=== PATIENT | female | born 1980 | race Two or more races ===

== ENCOUNTER 2017-08-21 19:44 | Emergency (ER) | payer OTHER ==
[2017-08-21 20:54] LABS: HEMATOCRIT 38.4 % (36.0-47.0); HEMOGLOBIN 12.9 g/dl (12.0-15.5); MEAN CORPUSCULAR HEMOGLOBIN 31.4 pg (27.0-33.0); MEAN CORPUSCULAR HGB CONC 33.6 g/dl (32.0-36.5); MEAN CORPUSCULAR VOLUME 93.4 fl (80.0-96.0); PLATELET COUNT, AUTOMATED 196 10^3/uL (150-450); RED BLOOD COUNT 4.11 10^6/uL (4.00-5.40); RED CELL DISTRIBUTION WIDTH 12.4 % (11.5-14.5); WHITE BLOOD COUNT 5.6 10^3/uL (4.0-10.0)
[2017-08-21 21:02] LABS: CONTROL LINE HCG INT CTR LINE PRESENT; HCG, SERUM QUALITATIVE NEGATIVE (NEGATIVE)
[2017-08-21 21:07] LABS: AMPHETAMINES LEVEL URINE POSITIVE (NEGATIVE); BARBITURATES URINE POSITIVE (NEGATIVE); BENZODIAZEPINES URINE NEGATIVE (NEGATIVE); CANNABINOIDS URINE NEGATIVE (NEGATIVE); COCAINE METABOLITE URINE NEGATIVE (NEGATIVE); METHADONE URINE NEGATIVE (NEGATIVE); OPIATES URINE NEGATIVE (NEGATIVE); PHENCYCLIDINE URINE NEGATIVE (NEGATIVE)
[2017-08-21 21:18] LABS: ACETAMINOPHEN LEVEL < 2.0 UG/ML (10.0-30.0); ALBUMIN 3.7 GM/DL (3.2-5.2); ALBUMIN/GLOBULIN RATIO 1.06 (1.00-1.93); ALKALINE PHOSPHATASE 100 U/L (45-117); ALT/SGPT 13 U/L (12-78); ANION GAP 7 MEQ/L (8-16); AST/SGOT 14 U/L (7-37); BILIRUBIN,DIRECT 0.1 MG/DL (0.0-0.2); BILIRUBIN,TOTAL 0.3 MG/DL (0.2-1.0); BLOOD UREA NITROGEN 13 MG/DL (7-18); CALCIUM LEVEL 8.5 MG/DL (8.5-10.1); CARBON DIOXIDE LEVEL 28 MEQ/L (21-32); CHLORIDE LEVEL 109 MEQ/L (98-107); CREATININE FOR GFR 0.75 MG/DL (0.55-1.30); GLOMERULAR FILTRATION RATE > 60.0 (>60); GLUCOSE, FASTING 83 MG/DL (70-100); POTASSIUM SERUM 3.6 MEQ/L (3.5-5.1); SALICYLATE LEVEL < 1.7 MG/DL (5.0-30.0); SODIUM LEVEL 144 MEQ/L (136-145); TOTAL PROTEIN 7.2 GM/DL (6.4-8.2)
[2017-08-21 21:21] LABS: ETHYL ALCOHOL (ETHANOL) < 0.003 % (0.000-0.010)
== END 2017-08-21 22:10 | disposition home or self-care (01) ==
LOC: M ED 19:44
DX: F33.9 Major depressive disorder, recurrent, unspecified (principal); F41.9 Anxiety disorder, unspecified; M54.30 Sciatica, unspecified side; G43.909 Migraine, unspecified, not intractable, without status migrainosus; Z79.899 Other long term (current) drug therapy; Z88.1 Allergy status to other antibiotic agents; Z87.891 Personal history of nicotine dependence
CPT/HCPCS: 80320

== ENCOUNTER 2018-01-27 11:40 | Emergency (ER) | payer OTHER ==
[2018-01-27] MEDS: dexameTHASONE 4 MG/ML 1ML VIAL (J1100) IM (11:58)
[2018-01-27] MEDS: KETOROLAC 60 MG/2 ML VIAL (J1885) IM (11:59)
== END 2018-01-27 12:14 | disposition home or self-care (01) ==
LOC: M ED 11:40
DX: M54.32 Sciatica, left side (principal); F41.9 Anxiety disorder, unspecified; F31.9 Bipolar disorder, unspecified; F90.9 Attention-deficit hyperactivity disorder, unspecified type; Z88.1 Allergy status to other antibiotic agents; Z79.899 Other long term (current) drug therapy
CPT/HCPCS: J1100

== ENCOUNTER 2018-02-05 09:21 | Outpatient (RCR) | payer OTHER | END 2018-02-20 | LOC: M PT 09:21 | DX: Z51.89 Encounter for other specified aftercare (principal); M54.42 Lumbago with sciatica, left side | CPT/HCPCS: 97110 ==

== ENCOUNTER → 2018-02-06 | Outpatient (CLI) | payer OTHER | LOC: M RAD 08:10 | DX: M54.42 Lumbago with sciatica, left side (principal) | CPT/HCPCS: 72110 ==

== ENCOUNTER 2018-02-22 10:34 | Outpatient (RCR) | payer OTHER | END 2018-03-22 | LOC: M PT 10:34 | DX: M54.42 Lumbago with sciatica, left side (principal) | CPT/HCPCS: 97110 ==

== ENCOUNTER → 2018-03-16 | Outpatient (CLI) | payer OTHER | LOC: M RAD 11:34 | DX: M47.896 Other spondylosis, lumbar region (principal); M51.26 Other intervertebral disc displacement, lumbar region | CPT/HCPCS: 72148 ==

== ENCOUNTER → 2018-03-19 | Outpatient (CLI) | payer OTHER | LOC: M PAIN 15:15 | DX: Z53.29 Procedure and treatment not carried out because of patient's decision for other reasons (principal) ==

== ENCOUNTER → 2018-03-27 | Outpatient (REF) | payer OTHER | LOC: M SFHCPLAZ 11:46 | DX: R10.32 Left lower quadrant pain (principal); R35.0 Frequency of micturition | CPT/HCPCS: 87086 ==

== ENCOUNTER → 2018-04-01 | Outpatient (CLI) | payer OTHER | LOC: M RAD 09:43 | DX: R10.32 Left lower quadrant pain (principal) | CPT/HCPCS: 76775 ==

== ENCOUNTER 2018-04-05 17:25 | Emergency (ER) | payer OTHER ==
[2018-04-05] MEDS: GI COCKTAIL 50ML BTL(HYOSCYAMINE/MAALOX/LIDOCAINE VISCOUS)(1:3:1) PO (19:10)
[2018-04-05] MEDS: NS 1,000 ML IV (19:10)
[2018-04-05] MEDS: ONDANSETRON 4MG/2ML VIAL (J2405) IV (19:11)
[2018-04-05 19:12] LABS: BASO % 0.4 % (0.0-1.0); EOS # 0.1 10^3/uL (0.0-0.50); EOS % 2.2 % (0.0-3.0); HEMATOCRIT 41.8 % (36.0-47.0); HEMOGLOBIN 14.1 g/dl (12.0-15.5); IMMATURE GRANULOCYTE % 0.2 % (0-3.0); LYMPH # 1.4 10^3/uL (1.5-4.5); LYMPH % 28.3 % (24.0-44.0); MEAN CORPUSCULAR HEMOGLOBIN 31.3 pg (27.0-33.0); MEAN CORPUSCULAR HGB CONC 33.7 g/dl (32.0-36.5); MEAN CORPUSCULAR VOLUME 92.9 fl (80.0-96.0); MONO # 0.4 10^3/uL (0.0-0.8); MONO % 8.5 % (0.0-5.0); NEUTROPHILS % 60.4 % (36.0-66.0); PLATELET COUNT, AUTOMATED 183 10^3/uL (150-450); RED CELL DISTRIBUTION WIDTH 12.3 % (11.5-14.5)
[2018-04-05] MEDS: KETOROLAC 30 MG/ML VIAL (J1885) IV (19:14)
[2018-04-05 19:32] LABS: CONTROL LINE HCG INT CTR LINE PRESENT; HCG, SERUM QUALITATIVE NEGATIVE (NEGATIVE)
[2018-04-05 19:40] LABS: ALBUMIN 3.3 GM/DL (3.2-5.2); ALBUMIN/GLOBULIN RATIO 1.03 (1.00-1.93); ALKALINE PHOSPHATASE 88 U/L (45-117); ALT/SGPT 18 U/L (12-78); ANION GAP 6 MEQ/L (8-16); AST/SGOT 10 U/L (7-37); BILIRUBIN,DIRECT 0.1 MG/DL (0.0-0.2); BILIRUBIN,TOTAL 0.4 MG/DL (0.2-1.0); BLOOD UREA NITROGEN 11 MG/DL (7-18); CALCIUM LEVEL 8.1 MG/DL (8.5-10.1); CARBON DIOXIDE LEVEL 28 MEQ/L (21-32); CHLORIDE LEVEL 107 MEQ/L (98-107); CREATININE FOR GFR 0.72 MG/DL (0.55-1.30); GLOMERULAR FILTRATION RATE > 60.0 (>60); GLUCOSE, FASTING 100 MG/DL (70-100); LIPASE 130 U/L (73-393); POTASSIUM SERUM 3.7 MEQ/L (3.5-5.1); SODIUM LEVEL 141 MEQ/L (136-145); TOTAL PROTEIN 6.5 GM/DL (6.4-8.2)
[2018-04-05] MEDS ORDERED: ISOVUE-370 76% 100ML VIAL (Q9967) As Ordered (19:49)
[2018-04-05] MEDS ORDERED: HALOPERIDOL 5 MG/ML VIAL (J1630) IV (21:12)
[2018-04-05 21:31] LABS: KETONE, URINE AUTO RFX NEGATIVE (NEGATIVE); LEUKOCYTE ESTERASE UR AUTO RFX NEGATIVE (NEGATIVE); NITRITE, URINE AUTO RFX NEGATIVE (NEGATIVE); RBC, URINE AUTO RFX 2 /HPF (0-3); SQUAM EPITHELIAL CELL UR AURFX 7 /HPF (0-6); WBC, URINE AUTO RFX 1 /HPF (0-3)
[2018-04-05] MEDS: diphenhydrAMINE INJ 50MG/ML VIAL (J1200) IV (21:32)
[2018-04-05] MEDS: HALOPERIDOL 5 MG/ML VIAL (J1630) IM (21:32)
[2018-04-05 22:10] LABS: SPECIFIC GRAVITY UR AUTO RFX >1.060 (1.002-1.035)
== END 2018-04-05 22:31 | disposition home or self-care (01) ==
LOC: M ED 17:25
DX: R10.9 Unspecified abdominal pain (principal); R11.2 Nausea with vomiting, unspecified; R19.7 Diarrhea, unspecified; N83.202 Unspecified ovarian cyst, left side; M54.30 Sciatica, unspecified side; Z79.899 Other long term (current) drug therapy; Z88.1 Allergy status to other antibiotic agents; Z87.891 Personal history of nicotine dependence
CPT/HCPCS: J1200

== ENCOUNTER 2018-04-11 13:30 | Outpatient (RCR) | payer OTHER ==
[~2018-04-11 13:30] MED LIST: ADDE12.5 PO; KLON1TAB PO; LAMO100T PO; LEXA1TAB2 PO; MEDR4PAK PO; ZOFR4TAB14 PO
== END 2018-04-22 ==
LOC: M PT 13:30
PROVIDERS: ATTEND Physician Assistant
DX: Z47.89 Encounter for other orthopedic aftercare (principal); M54.42 Lumbago with sciatica, left side; M47.896 Other spondylosis, lumbar region; M51.36 Other intervertebral disc degeneration, lumbar region

== ENCOUNTER → 2018-04-12 | Outpatient (REF) | payer OTHER ==
[2018-04-12 17:43] LABS: CHLAMYDIA DNA AMPLIFICATION NEGATIVE (NEGATIVE); GC DNA AMPLIFICATION NEGATIVE (NEGATIVE)
== END ==
LOC: M SFHCPLAZ 15:25
PROVIDERS: ATTEND Physician Assistant
DX: Z11.3 Encounter for screening for infections with a predominantly sexual mode of transmission (principal)

== ENCOUNTER 2018-05-21 13:18 | Outpatient (RCR) | payer OTHER | END 2018-05-23 | LOC: M PT 13:18 | PROVIDERS: ATTEND Physician Assistant | DX: M54.42 Lumbago with sciatica, left side (principal); M47.896 Other spondylosis, lumbar region; M51.36 Other intervertebral disc degeneration, lumbar region ==

== ENCOUNTER 2018-06-14 06:58 | Day surgery (SDC) | payer OTHER ==
[~2018-06-14] VITALS: Ht 157.5 cm; Wt 55.8 kg
[~2018-06-14 06:58] MED LIST changes: +ADDE1TAB14 PO; +NS 1,000 ML IV ONE
[2018-06-14] MEDS ORDERED: LIDOCAINE 2% INJ 100 MG/5 ML SDV (FOR ANES.) As Ordered ONE (07:23)
[2018-06-14] MEDS ORDERED: PROPOFOL 200 MG/20 ML VIAL As Ordered ONE (07:23)
--- NOTE | 2018-06-14 08:13 | ROOR ---
Patient Name: Omega Lara Procedure Date: 06/14/2018 7:29 AM Date of : 1980 Age: 37 Room: [facility] Gender: Female Note Status: Finalized Procedure: Colonoscopy Indications: Chronic diarrhea Providers: Luc Brown MD Referring MD: CLEOPATRA BROWN Requesting Provider: Medicines: Monitored Anesthesia Care Complications: No immediate complications. Procedure: Pre-Anesthesia Assessment: - Prior to the procedure, a History and Physical was performed, and patient medications and allergies were reviewed. The patient is competent. The risks and benefits of the procedure and the sedation options and risks were discussed with the patient. All questions were answered and informed consent was obtained. Patient identification and proposed procedure were verified by the physician, the nurse and the anesthesiologist in the procedure room. Mental Status Examination: alert and oriented. Airway Examination: normal oropharyngeal airway and neck mobility. Respiratory Examination: clear to auscultation. CV Examination: normal. Prophylactic Antibiotics: The patient does not require prophylactic antibiotics. Prior Anticoagulants: The patient has taken no previous anticoagulant or antiplatelet agents. ASA Grade Assessment: II - A patient with mild systemic disease. After reviewing the risks and benefits, the patient was deemed in satisfactory condition to undergo the procedure. The anesthesia plan was to use monitored anesthesia care (MAC). Immediately prior to administration of medications, the patient was re-assessed for adequacy to receive sedatives. The heart rate, respiratory rate, oxygen saturations, blood pressure, adequacy of pulmonary ventilation, and response to care were monitored throughout the procedure. The physical status of the patient was re-assessed after the procedure. The Colonoscope was introduced through the anus and advanced to the terminal ileum, with identification of the appendiceal orifice and IC valve. The colonoscopy was performed without difficulty. The patient tolerated the procedure well. The quality of the bowel preparation was good. The terminal ileum, ileocecal valve, appendiceal orifice, and rectum were photographed. Scope insertion time was 4 minutes. Scope withdrawal time was 10 minutes. The total duration of the procedure was 14 minutes. Findings: The perianal and digital rectal examinations were normal. The terminal ileum appeared normal. A 15 mm polyp was found in the ascending colon. The polyp was flat and sessile. The polyp was removed with a hot snare. The polyp was removed with a piecemeal technique using a hot snare. Resection and retrieval were complete. Verification of patient identification for the specimen was done by the physician and nurse using the patient's name, date and medical record number. Estimated blood loss was minimal. To close a defect after polypectomy, one hemostatic clip was successfully placed. There was no bleeding at the end of the procedure. Non-bleeding external and internal hemorrhoids were found during retroflexion. The hemorrhoids were small. Normal mucosa was found in the entire colon. Biopsies for histology were taken with a cold forceps from the right colon, left colon, transverse colon and rectosigmoid colon for evaluation of microscopic colitis. Impression: - The examined portion of the ileum was normal. - One 15 mm polyp in the ascending colon, removed with a hot snare and removed piecemeal using a hot snare. Resected and retrieved. Clip was placed. - Non-bleeding external and internal hemorrhoids. - Normal mucosa in the entire examined colon. Biopsied. Recommendation: - Patient has a contact number available for emergencies. The signs and symptoms of potential delayed complications were discussed with the patient. Return to normal activities tomorrow. Written discharge instructions were provided to the patient. - Resume previous diet. - Continue present medications. - Await pathology results. - Repeat colonoscopy in 1 year for surveillance after piecemeal polypectomy. - Based on the biopsy results you will receive a phone call from GI clinic in 2-3 weeks to review the pathology results AND/OR your results will be faxed to your Primary care physician. - Return to primary care physician. Luc Brown MD Luc Brown MD 06/14/2018 8:12:34 AM This report has been signed electronically. Number of Addenda: 0 Note Initiated On: 06/14/2018 7:29 AM Estimated Blood Loss: Estimated blood loss was minimal.
[2018-06-14 08:33] VITALS: BP 107/66
== END 2018-06-14 08:35 | disposition home or self-care (01) ==
LOC: M OPP 06:58
PROVIDERS: ATTEND Internal Medicine Gastroenterology
DX: K64.8 Other hemorrhoids (principal); D12.2 Benign neoplasm of ascending colon; K52.9 Noninfective gastroenteritis and colitis, unspecified; Z79.899 Other long term (current) drug therapy; Z88.8 Allergy status to other drugs, medicaments and biological substances; F32.9 Major depressive disorder, single episode, unspecified; G43.909 Migraine, unspecified, not intractable, without status migrainosus; Z80.41 Family history of malignant neoplasm of ovary

== ENCOUNTER → 2018-07-02 | Outpatient (REF) | payer OTHER ==
[~2018-07-02] MED LIST changes: -NS 1,000 ML IV ONE
[2018-07-02 18:47] LABS: APPEARANCE, URINE HAZY (CLEAR); BACTERIA, URINE AUTO NEGATIVE (NEGATIVE); BILIRUBIN, URINE AUTO NEGATIVE (NEGATIVE); BLOOD, URINE BLOOD NEGATIVE (NEGATIVE); COLOR, URINE YELLOW (YELLOW); GLUCOSE, URINE (UA) AUTO NEGATIVE (NEGATIVE); KETONE, URINE AUTO NEGATIVE (NEGATIVE); LEUKOCYTE ESTERASE, URINE AUTO NEGATIVE (NEGATIVE); MUCUS, URINE SMALL (NEGATIVE); NITRITE, URINE AUTO NEGATIVE (NEGATIVE); PROTEIN, URINE AUTO NEGATIVE (NEGATIVE); RBC, URINE AUTO 0 /HPF (0-3); SPECIFIC GRAVITY URINE AUTO 1.014 (1.002-1.035); SQUAMOUS EPITHELIAL CELL UR AU 6 /HPF (0-6); UROBILINOGEN, URINE AUTO 0.2 mg/dL (0.0-2.0); WBC, URINE AUTO 1 /HPF (0-3)
== END ==
LOC: M SFHCPLAZ 17:30
PROVIDERS: ATTEND Nurse Practitioner Family
DX: R10.2 Pelvic and perineal pain (principal)

== ENCOUNTER → 2018-07-10 | Outpatient (CLI) | payer OTHER ==
--- NOTE | 2018-07-11 06:41 | REP ---
Clinical: Pelvic pain. Technique: Transabdominal pelvic ultrasound followed by transvaginal examination for better evaluation of the endometrium and adnexa. Findings: Evidence of partial hysterectomy. Residual cervical tissue demonstrates small parenchymal calcifications and subcentimeter Nabothian cysts. Evidence of prior right oophorectomy. Left ovary measures 4.2 x 2.4 x 2.8 cm and includes 2.1 cm dominant follicle along with 1.3 cm hemorrhagic cyst. Color evaluation demonstrates left ovarian vascularity excluding torsion. Bladder is unremarkable and measures 8.8 x 2.8 x 5.8 cm. Impression: 1. Residual cervical tissue demonstrates heterogeneous parenchyma with scattered small chronic calcifications and subcentimeter Nabothian cysts. 2. Left ovary demonstrates dominant follicle and hemorrhagic cyst without evidence for torsion. Electronically Signed by Jake Sommers MD 07/11/2018 06:33 A
== END ==
LOC: M RAD 08:26
PROVIDERS: ATTEND Nurse Practitioner Family
DX: R10.2 Pelvic and perineal pain (principal); N83.202 Unspecified ovarian cyst, left side; N88.8 Other specified noninflammatory disorders of cervix uteri

== ENCOUNTER → 2018-07-16 | Outpatient (REF) | payer OTHER | LOC: M SFHCPLAZ 11:39 | PROVIDERS: ATTEND Physician Assistant | DX: R10.9 Unspecified abdominal pain (principal) ==

== ENCOUNTER → 2018-07-16 | Outpatient (CLI) | payer OTHER ==
[2018-07-16 12:14] LABS: BASO % 0.5 % (0.0-1.0); EOS # 0.2 10^3/uL (0.0-0.50); EOS % 3.5 % (0.0-3.0); HEMATOCRIT 40.9 % (36.0-47.0); HEMOGLOBIN 13.5 g/dl (12.0-15.5); LYMPH # 1.8 10^3/uL (1.5-4.5); LYMPH % 29.3 % (24.0-44.0); MEAN CORPUSCULAR VOLUME 93.8 fl (80.0-96.0); MONO # 0.4 10^3/uL (0.0-0.8); MONO % 5.8 % (0.0-5.0); NEUTROPHILS # 3.6 10^3/uL (1.8-7.7); NEUTROPHILS % 60.6 % (36.0-66.0); PLATELET COUNT, AUTOMATED 179 10^3/uL (150-450); RED BLOOD COUNT 4.36 10^6/uL (4.00-5.40)
[2018-07-16 12:45] LABS: ALBUMIN 3.7 GM/DL (3.2-5.2); ALT/SGPT 14 U/L (12-78); BILIRUBIN,TOTAL 0.6 MG/DL (0.2-1.0); BLOOD UREA NITROGEN 9 MG/DL (7-18); CALCIUM LEVEL 8.7 MG/DL (8.5-10.1); CARBON DIOXIDE LEVEL 27 MEQ/L (21-32); CHLORIDE LEVEL 105 MEQ/L (98-107); CREATININE FOR GFR 0.76 MG/DL (0.55-1.30); FREE T4 1.05 NG/DL (0.76-1.46); GLOMERULAR FILTRATION RATE > 60.0 (>60); GLUCOSE, FASTING 83 MG/DL (70-100); LIPASE 102 U/L (73-393); POTASSIUM SERUM 4.2 MEQ/L (3.5-5.1); SODIUM LEVEL 138 MEQ/L (136-145); THYROID STIMULATING HORMONE 0.634 uIU/ML (0.358-3.740)
== END ==
LOC: M LAB 11:37
PROVIDERS: ATTEND Physician Assistant
DX: R10.9 Unspecified abdominal pain (principal)

== ENCOUNTER → 2018-08-08 | Outpatient (REF) | payer OTHER, MEDICAID ==
[2018-08-10 16:33] LABS: HPV HYBRID CAPTURE II Negative (Negative)
== END ==
LOC: M LAB REF 13:09
PROVIDERS: ATTEND Advanced Practice Midwife
DX: Z12.4 Encounter for screening for malignant neoplasm of cervix (principal); R23.4 Changes in skin texture; N87.0 Mild cervical dysplasia

== ENCOUNTER → 2018-09-30 | Outpatient (CLI) | payer OTHER ==
[~2018-09-30] MED LIST changes: +METHACHOLINE KIT (J7674) INH ONE
--- NOTE | 2018-10-01 06:22 | PFTRPT ---
Height: 62.00 Inches Weight: 120.00 Lbs BSA: 1.54 Diagnosis: R06.09 DATE OF STUDY: 09/30/2018 ORDERED BY: Rimma Pate INTERPRETATION: Methacholine challenge of excellent technical quality. Under protocol, methacholine was administered. Even after a maximal dose of 25 mg or 188.875 CDUs, no provocation dose ever achieved. IMPRESSION: Negative methacholine challenge study. MTDD
== END ==
LOC: M CARPUL 10:36
PROVIDERS: ATTEND Physician Assistant
DX: R06.09 Other forms of dyspnea (principal)
CPT/HCPCS: 94070; 95070; J7674

== ENCOUNTER → 2018-11-29 | Outpatient (REF) | payer OTHER ==
[~2018-11-29] MED LIST changes: -METHACHOLINE KIT (J7674) INH ONE
[2018-11-29 15:51] LABS: CHLAMYDIA DNA AMPLIFICATION NEGATIVE (NEGATIVE); GC DNA AMPLIFICATION NEGATIVE (NEGATIVE)
== END ==
LOC: M LAB REF 13:32
PROVIDERS: ATTEND Specialist
DX: Z11.3 Encounter for screening for infections with a predominantly sexual mode of transmission (principal)

== ENCOUNTER → 2018-12-09 | Outpatient (CLI) | payer OTHER ==
[~2018-12-09] MED LIST changes: +E-Z-PAQUE 96% w/w SUSP 176GM BTL As Ordered ONE
--- NOTE | 2018-12-09 13:33 | REP ---
REASON: Assess for potential umbilical hernia. Patient has abdominal pain. Multiple ultrasonographic images of the umbilical and periumbilical area were obtained in the longitudinal and transverse scan planes. The anterior abdominal wall is intact. No abnormalities are noted by ultrasound. Electronically Signed by Donavan Rico DO 12/09/2018 02:06 P
--- NOTE | 2018-12-09 15:12 | REP ---
Examination Requested: SBFT Reason For Exam: Lower abdominal pain Small Bowel Follow Through The procedure was performed by JEB Krishna, under the direct supervision of Dr. Marino. The images were reviewed with Dr. Marino. The production planner scheduler film shows no organomegaly or pathological masses. The intestinal gas pattern appears normal. The barium was administered and the barium column was followed through the small bowel to the level of the terminal ileum. Small bowel transit time was approximately 80 minutes. During fluoroscopy gentle palpation shows all loops are freely mobile and pliable. There are no fixed or angulated loops. The small bowel mucosal pattern is normal in course and caliber. There is no transition to suggest a partial small-bowel obstruction. Spot filming of the terminal ileum shows it to be unremarkable. Impression: 1. Unremarkable small bowel follow-through 0.6 minutes of fluoroscopy time was utilized for this procedure. Some fluoroscopic images are performed with last image hold technology. These images require no additional radiation. Reviewed by JEB Matthews 12/09/2018 02:32 P Electronically Signed by Juan David Marino MD 12/09/2018 03:03 P
--- NOTE | 2018-12-09 18:39 | REP ---
REASON: Followup from 06/2018. According to the history the patient is status post partial hysterectomy with residual cervical tissue. Transvesical and transvaginal imaging was obtained. There is no change in the appearance of the imaged cervical tissue. No right ovary was imaged. There was no right adnexal mass. The left ovary was not visualized due to increased pelvic bowel. Urinary bladder measures 4 x 5 x 9 cm. IMPRESSION:Limited examination as described above. The cyst seem previously in the left ovary is no longer visualized. There was no evidence of an adnexal mass. Since the patient is experiencing persistent pelvic pain I would suggest followup with an MRI if clinically relevant. Electronically Signed by Donavan Rico DO 12/10/2018 11:23 A
== END ==
LOC: M RAD 09:00
PROVIDERS: ATTEND Internal Medicine Gastroenterology
DX: R10.30 Lower abdominal pain, unspecified (principal)

== ENCOUNTER → 2018-12-30 | Outpatient (REF) ==
[~2018-12-30] MED LIST changes: -E-Z-PAQUE 96% w/w SUSP 176GM BTL As Ordered ONE
== END ==
LOC: M LAB 12:19
PROVIDERS: ATTEND Nurse Practitioner Adult Health
DX: Z00.00 Encounter for general adult medical examination without abnormal findings (principal)

== ENCOUNTER 2019-06-08 23:37 | Emergency (ER) | payer OTHER ==
[~2019-06-08] VITALS: Ht 152.4 cm; Wt 56.8 kg
[~2019-06-08 23:37] MED LIST changes: -LAMO100T PO; +LAMO100T3 PO
[2019-06-09] MEDS ORDERED: diazePAM 10 MG/2 ML INJ (J3360) IV ONE (01:00)
[2019-06-09] MEDS ORDERED: LIDOCAINE 5% (LIDODERM) PATCH TD ONE (01:00)
[2019-06-09] MEDS ORDERED: KETOROLAC 30 MG/ML VIAL (J1885) IV ONE (01:00)
[2019-06-09 01:39] LABS: BASO % 0.7 % (0.0-1.0); EOS # 0.2 10^3/uL (0.0-0.5); EOS % 2.6 % (0.0-3.0); HEMATOCRIT 44.6 % (36.0-47.0); HEMOGLOBIN 14.4 g/dl (12.0-15.5); LYMPH # 1.5 10^3/uL (1.5-5.0); LYMPH % 25.4 % (24.0-44.0); MEAN CORPUSCULAR HEMOGLOBIN 30.4 pg (27.0-33.0); MEAN CORPUSCULAR HGB CONC 32.3 g/dl (32.0-36.5); MEAN CORPUSCULAR VOLUME 94.3 fl (80.0-96.0); MONO # 0.3 10^3/uL (0.0-0.8); MONO % 5.2 % (0.0-5.0); NEUTROPHILS # 3.8 10^3/uL (1.5-8.5); NEUTROPHILS % 65.8 % (36.0-66.0); PLATELET COUNT, AUTOMATED 223 10^3/uL (150-450); RED BLOOD COUNT 4.73 10^6/uL (4.00-5.40); WHITE BLOOD COUNT 5.8 10^3/uL (4.0-10.0)
[2019-06-09 01:50] LABS: APPEARANCE, URINE HAZY (CLEAR); BACTERIA, URINE AUTO NEGATIVE (NEGATIVE); BILIRUBIN, URINE AUTO NEGATIVE (NEGATIVE); BLOOD, URINE BLOOD 1+ (NEGATIVE); COLOR, URINE YELLOW (YELLOW); GLUCOSE, URINE (UA) AUTO NEGATIVE (NEGATIVE); KETONE, URINE AUTO NEGATIVE (NEGATIVE); LEUKOCYTE ESTERASE, URINE AUTO NEGATIVE (NEGATIVE); MUCUS, URINE SMALL (NEGATIVE); NITRITE, URINE AUTO NEGATIVE (NEGATIVE); PROTEIN, URINE AUTO NEGATIVE (NEGATIVE); RBC, URINE AUTO 3 /HPF (0-3); SPECIFIC GRAVITY URINE AUTO 1.026 (1.002-1.035); SQUAMOUS EPITHELIAL CELL UR AU 8 /HPF (0-6); UROBILINOGEN, URINE AUTO 0.2 mg/dL (0.0-2.0); WBC, URINE AUTO 1 /HPF (0-3)
[2019-06-09] MEDS ORDERED: NAPR-837 PO (02:10)
[2019-06-09] MEDS ORDERED: ROBA750T4 PO (02:10)
[2019-06-09] MEDS ORDERED: LIDO5DIS41 TD (02:10)
[2019-06-09 02:16] VITALS: BP 114/66
[2019-06-09] MEDS ORDERED: **NOTE PATIENT COMMENT** MISC XX ONE (13:00)
== END 2019-06-09 02:37 | disposition home or self-care (01) ==
LOC: M ED 23:37
DX: M54.5 Low back pain (principal); M62.830 Muscle spasm of back; Z88.8 Allergy status to other drugs, medicaments and biological substances; Z79.899 Other long term (current) drug therapy
CPT/HCPCS: 80047; 81001; 85025; 96374; 96375; 99284; J1885; J3360

== ENCOUNTER 2019-07-26 04:39 | Emergency (ER) | payer OTHER ==
[~2019-07-26] VITALS: Ht 152.4 cm; Wt 59.5 kg
[~2019-07-26 04:39] MED LIST changes: +LIDO5DIS41 TD; +NAPR-837 PO; +ROBA750T4 PO
[2019-07-26 04:40] VITALS: BP 129/85
[2019-07-26] MEDS ORDERED: ESCI20TA (04:46)
[2019-07-26] MEDS ORDERED: CLON1TAB8 (04:46)
[2019-07-26] MEDS ORDERED: LAMO100T3 (04:46)
[2019-07-26] MEDS ORDERED: PYRI1TAB5 PO (05:23)
[2019-07-26] MEDS ORDERED: BACT800T5 PO (05:23)
[2019-07-26] MEDS ORDERED: PHENAZOPYRIDINE 100 MG TAB PO ONE (05:30)
[2019-07-26] MEDS ORDERED: BACTRIM 160MG/800MG DS TAB PO ONE (05:30)
== END 2019-07-26 05:34 | disposition home or self-care (01) ==
LOC: M ED 04:39
DX: N30.90 Cystitis, unspecified without hematuria (principal); F33.9 Major depressive disorder, recurrent, unspecified; F41.9 Anxiety disorder, unspecified; Z79.899 Other long term (current) drug therapy; Z88.1 Allergy status to other antibiotic agents

== ENCOUNTER → 2019-12-15 | Outpatient (REF) | payer OTHER ==
[~2019-12-15] MED LIST changes: +BACT800T5 PO; +CLON1TAB8; +ESCI20TA; +LAMO100T3; +PYRI1TAB5 PO
[2019-12-15 17:44] LABS: CHLAMYDIA DNA AMPLIFICATION NEGATIVE (NEGATIVE); GC DNA AMPLIFICATION NEGATIVE (NEGATIVE)
== END ==
LOC: M LAB REF 15:21
PROVIDERS: ATTEND Nurse Practitioner Women's Health
DX: Z11.3 Encounter for screening for infections with a predominantly sexual mode of transmission (principal)

== ENCOUNTER → 2020-03-10 | Outpatient (REF) | payer OTHER ==
[2020-03-10 15:22] LABS: CHLAMYDIA DNA AMPLIFICATION NEGATIVE (NEGATIVE); GC DNA AMPLIFICATION NEGATIVE (NEGATIVE)
== END ==
LOC: M SFHCWAGY 13:22
PROVIDERS: ATTEND Nurse Practitioner Family
DX: R30.0 Dysuria (principal); Z11.3 Encounter for screening for infections with a predominantly sexual mode of transmission

== ENCOUNTER 2020-05-24 14:35 | Emergency (ER) | payer OTHER ==
[~2020-05-24] VITALS: Ht 152.4 cm; Wt 60.5 kg
[2020-05-24 14:35] VITALS: BP 133/81
[~2020-05-24 14:35] MED LIST changes: -ESCI20TA; +ESCI20TA16
--- OUTSIDE RECORDS SUMMARY | 2020-05-24 14:41 | CCD ---
Author Author [facility] Organization [facility] Address Unknown Phone Unavailable Care Team Providers Care Cotton Chopper Name Role Phone Foster Marina Unavailable PROBLEMS Type Condition ICD9-CM Code [id number] Code Onset Dates Condition S tatus SNOMED Code Notes Problem Attention deficit hyperactivity disorder (ADHD), unspecified ADHD type F90.9 Active 057675172 Problem Herniated intervertebral disc of lumbar spine M51. 26 Active 429363079153828 Problem Genital herpes A60.00 Active 62025179 Problem Intractable migraine without status migrainosus, unspecified migraine type G43.919 Active 075928760 Problem Genital herpes simplex, unspecified site A60.00 Active 60227592 Problem Bipolar II disorder F31.81 Active 32716758 Problem Vaginal bleeding N93.9 Active 054810681 ALLERGIES Allergen (clinical drug ingredient) Drug/Non Drug Allergy do cumented on EMR Reaction Allergy Type Onset Date Status Levaquin Anaphylaxis Drug Allergy Active ENCOUNTERS from 1980 to 2020-05-16 Encounter Location Date Provider Diagnosis [facility] [address] [place] [address] Apr, Marina Hutchison Genital herpes A60.0 0 IMMUNIZATIONS Vaccine Route Administration Date Status Influenza (18 yrs & older) Flublok IM Intramuscular Jan 30, 2019 Administered TDAP 0.5mL (Boostrix) IM Intramuscular Dec 21, 2017 Administe red Influenza (6mo & up) Fluzone IM Intramuscular Jan 22, 2018 Ad ministered SOCIAL HISTORY Tobacco Use: Social History Observation Description Date Details (start date - stop date) Former Smoker Sex Assigned At : Social History Observation Description Sex Assigned At Unknown Education: Question Answer Notes Level of Education: High School Audit Question Answer Notes Total Score: 1 Interpretation: Alcohol Education Language: Question Answer Notes Languages spoken: Citizen Of [place] Yarsani: Question Answer Notes Yarsani 08 Restorationist Sexual Hx: Question Answer Notes Had sex in the last 12 months (vaginal, oral, or anal)? Yes Have you ever had an STD? Yes with Men only Herpes? Yes Chlamydia? Yes Drug and Alcohol Question Answer Notes Total Score: 0 Interpretation: No problems reported Alcohol Screening: Question Answer Notes Did you have a drink containing alcohol in the past year? No Points 0 Interpretation Negative Tobacco Use: Question Answer Notes Are you a: former smoker How long has it been since you last smoked? > 10 years REASON FOR REFERRAL No Information VITAL SIGNS No information MEDICATIONS Medication SIG (Take, Route, Frequency, Duration) Notes Start Da te End Date Status Lexapro 20 MG 1 tablet Orally Daily Active Metronidazole 500 MG 1 tablet Orally twice daily for 7 day(s) Apr, Not-Taking Vrdcnxjpfm-BCKP-Swcbcxls 50-325-40 MG 1 tablet as need ed Orally every 4 hrs; MDD 6 for 30 days Not-Taking Klonopin 1 mg 1 tablet Orally three times daily as needed Active Decadron 4 MG 1 tablet Orally Once a day for 7 day(s) 2018 Not-Taking Lamotrigine 100 MG TK 1 T PO ONCE DAILY FOR MOOD STABILIZATION Orally Active Remeron 15 MG 1 tablet at bedtime Orally Once a day for 30 day(s) Active Acyclovir 400 MG 1 tablet Orally Twice a day for 30 day(s) Active Adderall 20 MG 1 tablet Orally bid Jan, Active PROCEDURES No Information RESULTS No Results REASON FOR VISIT refill MEDICAL (GENERAL) HISTORY Type Description Date Medical History Depression Medical History Anxiety Medical History ADHD Medical History Bipolar [facility] - [facility] Medical History PTSD Medical History Migraines with aura Medical History Genital herpes Medical History PFT's 04/24/18 - Normal FVC, F EV1, FVC/FEC1 ratio, "essentially normal study". Methacholine challege negative Medical History Spine MRI: Diffuse disc bulg e L4-S1 c minimal thecal compression 02/2018 Surgical History partial hysterectomy -supra cervical price s 1 remaining ovary 2012 Surgical History gallbladder removal 2014 Surgical History Endometrial ablasion 2006 Surgical History Colonoscopy 05/2018 - needs r epeat 1 yr d/t piecemeal polypectomy [facility] Hospitalization History With childbirth/surgeries Goals Section No Information Health Concerns No Information MEDICAL EQUIPMENT No Information MENTAL STATUS No Information FUNCTIONAL STATUS No Information ASSESSMENTS Encounter Date Diagnosis Assessment Notes Treatment Notes Treatm ent Clinical Notes Apr, Genital herpes (ICD-10 - A60.00) PLAN OF TREATMENT Medication Medication Name Sig Start Date Stop Date Acyclovir 400 MG 1 tablet Orally Twice a day for 30 day(s) Insurance Providers Payer Name Payer Address Payer Phone Insured Name Patient Relati onship to Insured Coverage Start Date Coverage End Date [facility] CORPORATE CLAIMS DEPT [address] [facility] [phone] RADHA FISCHER self
--- OUTSIDE RECORDS SUMMARY | 2020-05-24 14:41 | CCD ---
Author Author [facility] Organization [facility] Address Unknown Phone Unavailable Care Team Providers Care Statistical Developer Name Role Phone Stephanie Vasques Unavailable PROBLEMS Type Condition ICD9-CM Code [id number] Code Onset Dates Condition S tatus SNOMED Code Notes Problem Attention deficit hyperactivity disorder (ADHD), unspecified ADHD type F90.9 Active 862832100 Problem Herniated intervertebral disc of lumbar spine M51. 26 Active 094823795948516 Problem Genital herpes A60.00 Active 22810734 Problem Intractable migraine without status migrainosus, unspecified migraine type G43.919 Active 303330440 Problem Genital herpes simplex, unspecified site A60.00 Active 94565719 Problem Bipolar II disorder F31.81 Active 31652677 Problem Vaginal bleeding N93.9 Active 767795264 ALLERGIES Allergen (clinical drug ingredient) Drug/Non Drug Allergy do cumented on EMR Reaction Allergy Type Onset Date Status Levaquin Anaphylaxis Drug Allergy Active ENCOUNTERS from 1980 to 2020-03-23 Encounter Location Date Provider Diagnosis [facility] [address] [place] [id number] Feb, Stephanie Vasques Dysuria R30.0 and En counter for screening examination for sexually transmitted disease Z11.3 IMMUNIZATIONS Vaccine Route Administration Date Status Influenza [...] Education Language: Question Answer Notes Languages spoken: Bulgarian Scientology: Question Answer Notes Scientology 08 Jain Sexual Hx: Question Answer Notes Had sex [...] REASON FOR REFERRAL No Information VITAL SIGNS Weight 136 lbs Feb, Weight-kg 61.69 kg Feb, Height 62 in Feb, BMI 24.87 kg/m2 Feb, Blood pressure systolic 124 mm Hg Feb, Blood pressure diastolic 78 mm Hg Feb, MEDICATIONS Medication SIG (Take, Route, Frequency, Duration) Notes Start Da te End Date Status Lexapro 20 MG 1 tablet Orally Daily Active Metronidazole 500 MG 1 tablet Orally twice daily for 7 day(s) Apr, Not-Taking Adderall 20 MG 1 tablet Orally bid Jan, Active Pjfkgctlwv-TAJH-Lazitupe 50-325-40 MG 1 tablet as need ed Orally every 4 hrs; MDD 6 for 30 days Not-Taking Acyclovir 400 MG 1 tablet Orally Twice a day for 30 day(s) Active Lamotrigine 100 MG TK 1 T PO ONCE DAILY FOR MOOD STABILIZATION Orally Active Remeron 15 MG 1 tablet at bedtime Orally Once a day for 30 day(s) Active Klonopin 1 mg 1 tablet Orally three times daily as needed Active Decadron 4 MG 1 tablet Orally Once a day for 7 day(s) 2018 Not-Taking PROCEDURES No Information RESULTS REASON FOR VISIT possible UTI MEDICAL (GENERAL) HISTORY Type Description Date Medical History Depression Medical History Anxiety Medical History ADHD Medical History Bipolar II disorder - [facility] Medical History PTSD Medical History Migraines [...] r epeat 1 yr d/t piecemeal polypectomy ([place]) Hospitalization History With childbirth/surgeries Goals Section No Information Health Concerns No Information MEDICAL EQUIPMENT No Information MENTAL STATUS No Information FUNCTIONAL STATUS No Information ASSESSMENTS Encounter Date Diagnosis Assessment Notes Treatment Notes Treatm ent Clinical Notes Feb, Dysuria (ICD-10 - R30.0) Feb, Encounter for screening exam ination for sexually transmitted disease (ICD-10 - Z11.3) PLAN OF TREATMENT No Information Insurance Providers Payer Name Payer Address Payer Phone Insured Name Patient Relati onship to Insured Coverage Start Date Coverage End Date [facility]S DEPT [address] [facility] [phone] RADHA FISCHER self
--- OUTSIDE RECORDS SUMMARY | 2020-05-24 14:42 | CCD ---
Author Author [facility] Organization [facility] Address Unknown Phone Unavailable Support Name Relationship Address Phone [facility] Next Of Kin [address] [place] [address] SK* Next Of Kin [address] [place] [address] DAVE XAVIER Next Of Kin [address] [place] [address] SELF EMPLOYED Next Of Kin [address] [place] [address] CORINA SILVERMAN(BROTHER Next Of Kin [address] [place] [address] UNEMPLOYED Next Of Kin [address] [place] [address] AMNA SILVERMAN Next Of Kin [address] [place] [address] UE Next Of Kin Unknown Unavailable EVARISTO SILVERMAN Next Of Kin [address] [place] [address] AMNA SILVERMAN ECON [address] [place] [address] Unavailable Re-disclosure Warning The records that you are about to access may contain information from federally-assisted alcohol or drug abuse programs. If such information is present, then the following federally mandated warning applies: This information has been disclosed to you from records protected by federal confidentiality rules (42 CFR part 2). The federal rules prohibit you from making any further disclosure of this information unless further disclosure is expressly permitted by the written consent of the person to whom it pertains or as otherwise permitted by 42 CFR part 2. A general authorization for the release of medical or other information is NOT sufficient for this purpose. The Federal rules restrict any use of the information to criminally investigate or prosecute any alcohol or drug abuse patient.The records that you are about to access may contain highly sensitive health information, the redisclosure of which is protected by Article 27-F of the [facility] Public Health law. If you continue you may have access to information: Regarding HIV / AIDS; Provided by facilities licensed or operated by the [facility] Office of Mental Health; or Provided by the [facility] Office for People With Developmental Disabilities. If such information is present, then the following [facility] mandated warning applies: This information has been disclosed to you from confidential records which are protected by state law. State law prohibits you from making any further disclosure of this information without the specific written consent of the person to whom it pertains, or as otherwise permitted by law. Any unauthorized further disclosure in violation of state law may result in a fine or fci sentence or both. A general authorization for the release of medical or other information is NOT sufficient authorization for further disc losure. Allergies and Adverse Reactions Type Description Substance Reaction Status Data Source(s ) Levaquin Levaquin Levofloxacin 750 MG Oral Tablet [Levaquin ] Anaphylaxis Active eCW1 ([facility]) Family History Family Member Name Family Member Gender Family Member Status Date o f Status Description Data Source(s) Unknown Unknown Problem MEDENT ([facility]) Encounters Encounter Providers Location Date Indications Data Source(s ) Unknown [address] [place] [phone] 05/14/2020 12:00:00 AM EST eCW1 ([facility]) Outpatient [address] [place] [phone] 03/10/2020 12:00:00 AM EST eCW1 ([facility]) [facility] [place] [address] [place] [address] [place] [phone] 06/09/2019 12:00:00 AM EST eCW1 ([facility]) [facility] [place] [place] [address] 05/28/2019 12:00:00 AM EST eCW1 ([facility]) [facility] [place] [place] [address] 05/16/2019 12:00:00 AM EST eCW1 ([facility]) [facility] [address] [facility], [facility] [address] 05/16/2019 12:00:00 AM EST eCW1 ([facility]) [facility] [address] [place] [address] 05/12/2019 12:00:00 AM EST eCW1 ([facility]) Medications Medication Brand Name Start Date Product Form Dose Route Admi nistrative Instructions Pharmacy Instructions Status Indications Reaction Description Data Source(s) Metronidazole 500 MG Oral Tablet Metronidazole 500 MG 2019 12:00:00 AM EST active 1 tablet eCW1 ([facility]) Metronidazole 500 MG Oral Tablet Metronidazole 500 MG 2019 12:00:00 AM EST 1.0 {tablet} suspended Metronid azole 500 MG eCW1 ([facility]) Metronidazole 500 MG Oral Tablet Metronidazole 500 MG 2019 12:00:00 AM EST 1.0 {tablet} suspended Metronid azole 500 MG eCW1 ([facility]) Insurance Providers Payer name Policy type / Coverage type Policy ID Covered constitution party ID Covered constitution party's relationship to ferraro Policy Ferraro Plan Information [facility] [id number] 000 ANSI-Commercial [id number] ANSI-Commercial [id number] ANSI-Commercial [id number] [facility] [id number] SP [id number] 000 Medicaid [place] [facility] [id number] Self [id number] [facility] Medicaid [id number] Self [id number] [place] Medig[place] Part B [id number] Self [id number] [place] Medicaid [id number] Self [id number] MEDICAID [id number] SP [id number] Medicaid [facility] Part B [id number] Self [id number] [place] Medicaid [id number] Self [id number] ANSI-Commercial [id number] ANSI-Commercial [id number] ANSI-Commercial [id number] SERGIO [id number] SP [id number] 000 [place] Care [place] Medicaid [id number] Self [id number] SERGIO [id number] SP [id number] SERGIO [id number] SP [id number] 000 ANSI-Commercial [id number] SERGIO [id number] SP [id number] 000 ANSI-Commercial [id number] ANSI-Commercial [id number] ANSI-Commercial [id number] ANSI-Commercial [id number] [employer] Medicaid/P/P Commercial [id number] Self [id number] ANSI-Commercial [id number] ANSI-Commercial [id number] ANSI-Commercial [id number] ANSI-Commercial [id number] ANSI-Commercial [id number] ANSI-Commercial [id number] ANSI-Commercial [id number] ANSI-Commercial [id number] ANSI-Commercial [id number] ANSI-Commercial [id number] [facility] [id number] Problems, Conditions, and Diagnoses Code Display Name Description Problem Type Effective Dates Data Source(s) A60.00 [id number] Genital herpes Problem 05/12/2019 12:00:00 A M EST eCW1 ([facility]) A60.00 [id number] Genital herpes Problem 05/12/2019 12:00:00 A M EST eCW1 ([facility]) Surgeries/Procedures Procedure Description Date Indications Data Source(s) SMEAR, WET [place], SALINE/INK 05/12/2019 12:00:00 AM ES T eCW1 ([facility]) Results ID Date Data Source [id number] 05/20/2020 12:00:00 AM EST [facility] Name Value Range Interpretation Code Description Data Joellen rce(s) Supporting Document(s) SARS coronavirus 2 Ag NEGATIVE [facility] This lab was ordered by [facility] and reported by [facility]. ID Date Data Source [id number] 05/17/2020 12:00:00 PM EST [facility] Name Value Range Interpretation Code Description Data Joellen rce(s) Supporting Document(s) SARS coronavirus 2 RNA Not Detected [facility] [place] This lab was ordered by [facility] and reported by [facility]. ID Date Data Source [id number] 05/13/2020 12:00:00 AM EST [facility] Name Value Range Interpretation Code Description Data Joellen rce(s) Supporting Document(s) SARS coronavirus 2 Ag Negative [facility] This lab was ordered by [facility] and reported by [facility]. ID Date Data Source [id number] 05/10/2020 03:00:00 PM EST [facility] Name Value Range Interpretation Code Description Data Joellen rce(s) Supporting Document(s) SARS coronavirus 2 RNA Not Detected [facility] [place] This lab was ordered by [facility] and reported by [facility]. ID Date Data Source [id number] 05/03/2020 09:00:00 AM EST [facility] Name Value Range Interpretation Code Description Data Joellen rce(s) Supporting Document(s) SARS coronavirus 2 RNA Not Detected [facility] [place] This lab was ordered by [facility] and reported by [facility]. ID Date Data Source [id number] 04/26/2020 02:00:00 PM EST [facility] Name Value Range Interpretation Code Description Data Joellen rce(s) Supporting Document(s) SARS coronavirus 2 RNA Not Detected [facility] [place] This lab was ordered by [facility] and reported by [facility]. ID Date Data Source [id number] 04/19/2020 02:36:00 PM EST [facility] Name Value Range Interpretation Code Description Data Joellen rce(s) Supporting Document(s) SARS coronavirus 2 RNA [facility] This lab was ordered by [facility] and reported by [facility]. ID Date Data Source [id number] 04/12/2020 02:13:00 PM EST [facility] Name Value Range Interpretation Code Description Data Joellen rce(s) Supporting Document(s) SARS coronavirus 2 RNA [facility] This lab was ordered by [facility] and reported by [facility]. ID Date Data Source [id number] 04/05/2020 12:14:00 PM EST [facility] Name Value Range Interpretation Code Description Data Joellen rce(s) Supporting Document(s) SARS coronavirus 2 RNA [facility] This lab was ordered by [facility] and reported by [facility]. ID Date Data Source [id number] 03/29/2020 01:35:00 PM EST [facility] Name Value Range Interpretation Code Description Data Joellen rce(s) Supporting Document(s) SARS coronavirus 2 RNA [facility] This lab was ordered by [facility] and reported by [facility]. ID Date Data Source [id number] 03/22/2020 02:02:00 PM EST [facility] Name Value Range Interpretation Code Description Data Joellen rce(s) Supporting Document(s) SARS coronavirus 2 RNA [facility] This lab was ordered by [facility] and reported by [facility]. ID Date Data Source [id number] 03/15/2020 02:00:00 PM EST [facility] Name Value Range Interpretation Code Description Data Joellen rce(s) Supporting Document(s) SARS coronavirus 2 RNA [facility] This lab was ordered by [facility] and reported by [facility]. ID Date Data Source [id number], GC & TRICH AMP 03/10/2020 12:00:00 AM EST eCW1 ([facility]) Name Value Range Interpretation Code Description Data Joellen rce(s) Supporting Document(s) NOT DETECTED NEGATIVE eCW1 ([facility]) ID Date Data Source URINE CULTURE 03/10/2020 12:00:00 AM EST eCW1 ([facility]) Name Value Range Interpretation Code Description Data Joellen rce(s) Supporting Document(s) Laboratory studies (set) URINE CULTU RE eCW1 ([facility]) ID Date Data Source [id number] 03/08/2020 11:09:00 AM EST [facility] Name Value Range Interpretation Code Description Data Joellen rce(s) Supporting Document(s) SARS coronavirus 2 RNA [facility] This lab was ordered by [facility] and reported by [facility]. ID Date Data Source [id number] 03/01/2020 02:15:00 PM EST [facility] Name Value Range Interpretation Code Description Data Joellen rce(s) Supporting Document(s) SARS coronavirus 2 RNA [facility] This lab was ordered by [facility] and reported by [facility]. ID Date Data Source [id number] 02/23/2020 02:00:00 PM EST [facility] Name Value Range Interpretation Code Description Data Joellen rce(s) Supporting Document(s) SARS coronavirus 2 RNA [facility] This lab was ordered by [facility] and reported by [facility]. ID Date Data Source [id number] 02/16/2020 02:04:00 PM EDT [facility] Name Value Range Interpretation Code Description Data Joellen rce(s) Supporting Document(s) SARS coronavirus 2 RNA [facility] This lab was ordered by [facility] and reported by [facility]. ID Date Data Source [id number] 02/09/2020 12:00:00 PM EDT [facility] Name Value Range Interpretation Code Description Data Joellen rce(s) Supporting Document(s) SARS coronavirus 2 RNA [facility] This lab was ordered by [facility] and reported by [facility]. ID Date Data Source [id number] 02/02/2020 03:00:00 PM EDT [facility] Name Value Range Interpretation Code Description Data Joellen rce(s) Supporting Document(s) SARS coronavirus 2 RNA [facility] This lab was ordered by [facility] and reported by [facility]. ID Date Data Source [id number] 01/26/2020 02:00:00 PM EDT [facility] Name Value Range Interpretation Code Description Data Joellen rce(s) Supporting Document(s) SARS coronavirus 2 RNA [facility] This lab was ordered by [facility] and reported by [facility]. ID Date Data Source [id number] 01/19/2020 12:00:00 PM EDT [facility] Name Value Range Interpretation Code Description Data Joellen rce(s) Supporting Document(s) SARS coronavirus 2 RNA [facility] This lab was ordered by [facility] and reported by [facility]. ID Date Data Source [id number] 01/12/2020 02:29:00 PM EDT [facility] Name Value Range Interpretation Code Description Data Joellen rce(s) Supporting Document(s) SARS coronavirus 2 RNA [facility] This lab was ordered by [facility] and reported by [facility]. ID Date Data Source [id number] 01/05/2020 02:00:00 PM EDT [facility] Name Value Range Interpretation Code Description Data Joellen rce(s) Supporting Document(s) SARS coronavirus 2 RNA [facility] This lab was ordered by [facility] and reported by [facility]. ID Date Data Source [id number] 12/31/2019 02:00:00 PM EDT [facility] Name Value Range Interpretation Code Description Data Joellen rce(s) Supporting Document(s) SARS coronavirus 2 RNA [facility] This lab was ordered by [facility] and reported by [facility]. ID Date Data Source [id number] 12/22/2019 02:48:00 PM EDT [facility] Name Value Range Interpretation Code Description Data Joellen rce(s) Supporting Document(s) SARS coronavirus 2 RNA [facility] This lab was ordered by [facility] and reported by [facility]. ID Date Data Source [id number] 12/15/2019 01:16:00 PM EDT [facility] Name Value Range Interpretation Code Description Data Joellen rce(s) Supporting Document(s) SARS coronavirus 2 RNA [facility] This lab was ordered by [facility] and reported by [facility]. ID Date Data Source [id number] 11/10/2019 03:16:00 PM EDT [facility] Name Value Range Interpretation Code Description Data Joellen rce(s) Supporting Document(s) SARS coronavirus 2 RNA [facility] This lab was ordered by [facility] and reported by [facility]. ID Date Data Source [id number] 11/03/2019 03:27:00 PM EDT [facility] Name Value Range Interpretation Code Description Data Joellen rce(s) Supporting Document(s) SARS coronavirus 2 RNA [facility] This lab was ordered by [facility] and reported by [facility]. ID Date Data Source [id number] 10/27/2019 03:16:00 PM EDT [facility] Name Value Range Interpretation Code Description Data Joellen rce(s) Supporting Document(s) SARS coronavirus 2 RNA [facility] This lab was ordered by [facility] and reported by [facility]. ID Date Data Source [id number] 10/20/2019 03:00:00 PM EDT [facility] Name Value Range Interpretation Code Description Data Joellen rce(s) Supporting Document(s) SARS CORONAVIRUS 2 RNA [facility] This lab was ordered by [facility] and reported by [facility]. ID Date Data Source [id number] 10/13/2019 03:14:00 PM EDT [facility] Name Value Range Interpretation Code Description Data Joellen rce(s) Supporting Document(s) SARS CORONAVIRUS 2 RNA [facility] This lab was ordered by [facility] and reported by [facility]. ID Date Data Source [id number] 10/06/2019 03:12:00 PM EDT [facility] Name Value Range Interpretation Code Description Data Joellen rce(s) Supporting Document(s) SARS CORONAVIRUS 2 RNA [facility] This lab was ordered by [facility] and reported by [facility]. ID Date Data Source [id number] 10/03/2019 12:00:00 AM EDT [facility] Name Value Range Interpretation Code Description Data Joellen rce(s) Supporting Document(s) SARS CORONAVIRUS 2 RNA [facility] This lab was ordered by [facility] and reported by [facility]. ID Date Data Source [id number] 09/25/2019 03:04:00 PM EDT [facility] Name Value Range Interpretation Code Description Data Joellen rce(s) Supporting Document(s) SARS CORONAVIRUS 2 RNA [facility] This lab was ordered by [facility] and reported by [facility]. ID Date Data Source [id number] 09/22/2019 02:20:00 PM EDT [facility] Name Value Range Interpretation Code Description Data Joellen rce(s) Supporting Document(s) SARS CORONAVIRUS 2 RNA [facility] This lab was ordered by [facility] and reported by [facility]. ID Date Data Source [id number] 09/16/2019 09:32:00 AM EDT [facility] Name Value Range Interpretation Code Description Data Joellen rce(s) Supporting Document(s) SARS CORONAVIRUS 2 RNA [facility] This lab was ordered by [facility] and reported by [facility]. ID Date Data Source [id number] 09/10/2019 11:14:00 AM EDT [facility] Name Value Range Interpretation Code Description Data Joellen rce(s) Supporting Document(s) SARS CORONAVIRUS 2 RNA [facility] This lab was ordered by [facility] and reported by [facility]. ID Date Data Source [id number] 09/01/2019 07:15:00 AM EDT [facility] Name Value Range Interpretation Code Description Data Joellen rce(s) Supporting Document(s) SARS CORONAVIRUS 2 RNA [facility] This lab was ordered by [facility] and reported by [facility]. Procedure Social History Code Duration Value Status Description Data Source(s ) Smoking 03/10/2020 12:00:00 AM EST Former Smoker completed Former Smoker eCW1 ([facility]) Smoking 03/10/2020 12:00:00 AM EST Former Smoker completed Former Smoker eCW1 ([facility]) Vital Signs ID Date Data Source UNK Name Value Range Interpretation Code Description Data Source(s) Diastolic blood pressure 78 mm[Hg] 78 mm[Hg] eCW1 ([facility]) Systolic blood pressure 124 mm[Hg] 124 mm[Hg] e CW1 ([facility]) Body mass index (BMI) [Ratio] 24.87 kg/m2 24.87 kg/m2 W1 ([facility]) Body height 62 [in_i] 62 [in_i] eCW1 ([facility]) Body weight 61.69 kg 61.69 kg W1 ([facility]) Body weight 136 [lb_av] 136 [lb_av] eCW1 ([facility]) Diastolic blood pressure 64 mm[Hg] 64 mm[Hg] eCW1 ([facility]) Systolic blood pressure 116 mm[Hg] 116 mm[Hg] e CW1 ([facility]) Body mass index (BMI) [Ratio] 22.13 kg/m2 22.13 kg/m2 W1 ([facility]) Body height 62 [in_us] 62 [in_us] eCW1 ([facility]) Body weight Measured 121 [lb_av] 121 [lb_av] eC W1 ([facility]) Patient Treatment Plan of Care Planned Activity Planned Date Details Description Data Source (s) Metronidazole 500 MG Oral Tablet 05/12/2019 12:00:00 AM EST eCW1 ([facility])
--- OUTSIDE RECORDS SUMMARY | 2020-05-24 17:16 | CCD ---
Author Author [facility] Organization [facility] Address Unknown Phone Unavailable Support Name Relationship Address Phone ALBA [facility] Next Of Kin [address] [place] [address] SK* Next Of Kin [address] [place] [address] DAVE XAVIER Next Of Kin [address] [place] [address] SELF EMPLOYED Next Of Kin [address] [place] [address] CORINA SILVERMAN(BROTHER Next Of Kin [address] [place] [address] UNEMPLOYED Next Of Kin [address] [place] [address] AMNA SILVERMAN Next Of Kin [address] [place] [address] UE Next Of Kin Unknown Unavailable EVARISTO SILVERMAN Next Of Kin [address] [place] [address] AMNA SILVERMAN ECON [address] [place] [address] Unavailable Re-disclosure Warning The records that you [...] is protected by Article 27-F of the [facility] Public Health law. If you continue you may have access to information: Regarding HIV / AIDS; Provided by facilities licensed or operated by the [facility] Office of Mental Health; or Provided by the [facility] Office for People With Developmental Disabilities. If such information is present, then the following [facility] mandated warning applies: This information has been [...] law may result in a fine or prison sentence or both. A general authorization for the release of medical or other information is NOT sufficient authorization for further disc losure. Allergies and Adverse Reactions Type Description Substance Reaction Status Data Source(s ) Levaquin Levaquin Levofloxacin 750 MG Oral Tablet [Levaquin ] Anaphylaxis Active eCW1 ([facility]) Family History Family Member Name Family Member Gender Family Member Status Date o f Status Description Data Source(s) Unknown Unknown Problem MEDENT ([facility]) Encounters Encounter Providers Location Date Indications Data Source(s ) Unknown [address] [place] [phone] 05/14/2020 12:00:00 AM EST eCW1 ([facility]) Outpatient [address] [place] [phone] 03/10/2020 12:00:00 AM EST eCW1 ([facility]) [facility] [address] [place] [address] [place] [address] 06/09/2019 12:00:00 AM EST eCW1 ([facility]) [facility] [place] [address] 05/28/2019 12:00:00 AM EST eCW1 ([facility]) [facility] [place] [address] 05/16/2019 12:00:00 AM EST eCW1 ([facility]) [facility] [address] [facility] [address] 05/16/2019 12:00:00 AM EST eCW1 ([facility]) [facility] [address] [place] [address] 05/12/2019 12:00:00 AM EST eCW1 ([facility]) Medications Medication Brand Name Start Date Product Form Dose Route Admi nistrative Instructions Pharmacy Instructions Status Indications Reaction Description Data Source(s) Metronidazole 500 MG Oral Tablet Metronidazole 500 MG 2019 12:00:00 AM EST active 1 tablet [facility]CW1 [facility] Metronidazole 500 MG Oral Tablet Metronidazole 500 MG 2019 12:00:00 AM EST 1.0 {tablet} suspended Metronid azole 500 MG eCW1 ([facility]) Metronidazole 500 MG Oral Tablet Metronidazole 500 MG 2019 12:00:00 AM EST 1.0 {tablet} suspended Metronid azole 500 MG eCW1 ([facility]) Insurance Providers Payer name Policy type / Coverage type Policy ID Covered alliance party ID Covered alliance party's relationship to ferraro Policy Ferraro Plan Information [facility] [id number] 000 ANSI-Commercial [id number] ANSI-Commercial [id number] ANSI-Commercial [id number] [facility] [id number] SP [id number] 000 Medicaid [place] [facility] [id number] Self [id number] [facility] Medicaid [id number] Self [id number] [place] Med[place] Part [place] [id number] Self [id number] [facility] [place] Medicaid [id number] Self [id number] MEDICAID [id number] SP [id number] Medicaid [facility] Part B [id number] Self [id number] [place] [facility] [place] Medicaid [id number] Self [id number] ANSI-Commercial [id number] ANSI-Commercial [id number] ANSI-Commercial [id number] SERGIO [id number] SP [id number] 000 [facility] [employer] [place] Medicaid [id number] Self [id number] SERGIO [id number] SP [id number] 000 SERGIO [id number] SP [id number] 000 ANSI-Commercial [id number] SERGIO [id number] SP [id number] 000 ANSI-Commercial [id number] ANSI-Commercial [id number] ANSI-Commercial [id number] ANSI-Commercial [id number] [employer] Medicaid/P/P Commercial [id number] Self [id number] ANSI-Commercial [id number] ANSI-Commercial [id number] ANSI-Commercial [id number] ANSI-Commercial [id number] ANSI-Commercial [id number] ANSI-Commercial [id number] ANSI-Commercial [id number] ANSI-Commercial [id number] ANSI-Commercial [id number] ANSI-Commercial [id number] [facility] [id number] Problems, Conditions, and Diagnoses Code Display Name Description Problem Type Effective Dates Data Source(s) A60.00 32104471 Genital herpes Problem 05/12/2019 12:00:00 A M EST eCW1 ([facility]) A60.00 [id number] Genital herpes Problem 05/12/2019 12:00:00 A M EST eCW1 ([facility]) Surgeries/Procedures Procedure Description Date Indications Data Source(s) SMEAR, WET [place], SALINE/INK 05/12/2019 12:00:00 AM ES T eCW1 ([facility]) Results ID Date Data Source [id number] 05/20/2020 12:00:00 AM EST [facility] Name Value Range Interpretation Code Description Data Joellen rce(s) Supporting Document(s) SARS coronavirus 2 Ag NEGATIVE [facility] This lab was ordered by [facility] and reported by [facility]. ID Date Data Source [id number] 05/17/2020 12:00:00 PM EST [facility] Name Value Range Interpretation Code Description Data Joellen rce(s) Supporting Document(s) SARS coronavirus 2 RNA Not Detected [facility] [place] This lab was ordered by [facility] and reported by [facility]. ID Date Data Source [id number] 05/13/2020 12:00:00 AM EST [facility] Name Value Range Interpretation Code Description Data Joellen rce(s) Supporting Document(s) SARS coronavirus 2 Ag Negative [facility] This lab was ordered by [facility] and reported by [facility]. ID Date Data Source [id number] 05/10/2020 03:00:00 PM EST [facility] Name Value Range Interpretation Code Description Data Joellen rce(s) Supporting Document(s) SARS coronavirus 2 RNA Not Detected [facility] [place] This lab was ordered by [facility] and reported by [facility]. ID Date Data Source [id number] 05/03/2020 09:00:00 AM EST [facility] Name Value Range Interpretation Code Description Data Joellen rce(s) Supporting Document(s) SARS coronavirus 2 RNA Not Detected [place] [place] This lab was ordered by [facility] and reported by [facility]. ID Date Data Source [id number] 04/26/2020 02:00:00 PM EST [facility] Name Value Range Interpretation Code Description Data Joellen rce(s) Supporting Document(s) SARS coronavirus 2 RNA Not Detected [facility] [place] This lab was ordered by [facility] and reported by [facility]. ID Date Data Source [id number] 04/19/2020 02:36:00 PM EST [facility] Name Value Range Interpretation Code Description Data Joellen rce(s) Supporting Document(s) SARS coronavirus 2 RNA [facility] This lab was ordered by [facility] and reported by [facility]. ID Date Data Source [id number] 04/12/2020 02:13:00 PM EST [facility] Name Value Range Interpretation Code Description Data Joellen rce(s) Supporting Document(s) SARS coronavirus 2 RNA [facility] This lab was ordered by [facility] and reported by [facility]. ID Date Data Source [id number] 04/05/2020 12:14:00 PM EST [facility] Name Value Range Interpretation Code Description Data Joellen rce(s) Supporting Document(s) SARS coronavirus 2 RNA [facility] This lab was ordered by [facility] and reported by [facility]. ID Date Data Source [id number] 03/29/2020 01:35:00 PM EST [facility] Name Value Range Interpretation Code Description Data Joellen rce(s) Supporting Document(s) SARS coronavirus 2 RNA [facility] This lab was ordered by [facility] and reported by [facility]. ID Date Data Source [id number] 03/22/2020 02:02:00 PM EST [facility] Name Value Range Interpretation Code Description Data Joellen rce(s) Supporting Document(s) SARS coronavirus 2 RNA [facility] This lab was ordered by [facility] and reported by [facility]. ID Date Data Source [id number] 03/15/2020 02:00:00 PM EST [facility] Name Value Range Interpretation Code Description Data Joellen rce(s) Supporting Document(s) SARS coronavirus 2 RNA [facility] This lab was ordered by [facility] and reported by [facility]. ID Date Data Source [id number], GC & TRICH AMP 03/10/2020 12:00:00 AM EST eCW1 ([facility]) Name Value Range Interpretation Code Description Data Joellen rce(s) Supporting Document(s) NOT DETECTED NEGATIVE eCW1 ([facility]) ID Date Data Source [id number] CULTURE 03/10/2020 12:00:00 AM EST eCW1 ([facility]) Name Value Range Interpretation Code Description Data Joellen rce(s) Supporting Document(s) Laboratory studies (set) URINE CULTU RE eCW1 ([facility]) ID Date Data Source [id number] 03/08/2020 11:09:00 AM EST [facility] Name Value Range Interpretation Code Description Data Joellen rce(s) Supporting Document(s) SARS coronavirus 2 RNA [facility] This lab was ordered by [facility] and reported by [facility]. ID Date Data Source [id number] 03/01/2020 02:15:00 PM EST [facility] Name Value Range Interpretation Code Description Data Joellen rce(s) Supporting Document(s) SARS coronavirus 2 RNA [facility] This lab was ordered by [facility] and reported by [facility]. ID Date Data Source [id number] 02/23/2020 02:00:00 PM EST [facility] Name Value Range Interpretation Code Description Data Joellen rce(s) Supporting Document(s) SARS coronavirus 2 RNA [facility] This lab was ordered by [facility] and reported by [facility]. ID Date Data Source [id number] 02/16/2020 02:04:00 PM EDT [facility] Name Value Range Interpretation Code Description Data Joellen rce(s) Supporting Document(s) SARS coronavirus 2 RNA [facility] This lab was ordered by [facility] and reported by [facility]. ID Date Data Source [id number] 02/09/2020 12:00:00 PM EDT [facility] Name Value Range Interpretation Code Description Data Joellen rce(s) Supporting Document(s) SARS coronavirus 2 RNA [facility] This lab was ordered by [facility] and reported by [facility]. ID Date Data Source [id number] 02/02/2020 03:00:00 PM EDT [facility] Name Value Range Interpretation Code Description Data Joellen rce(s) Supporting Document(s) SARS coronavirus 2 RNA [facility] This lab was ordered by [facility] and reported by [facility]. ID Date Data Source [id number] 01/26/2020 02:00:00 PM EDT [facility] Name Value Range Interpretation Code Description Data Joellen rce(s) Supporting Document(s) SARS coronavirus 2 RNA [facility] This lab was ordered by [facility] and reported by [facility]. ID Date Data Source [id number] 01/19/2020 12:00:00 PM EDT [facility] Name Value Range Interpretation Code Description Data Joellen rce(s) Supporting Document(s) SARS coronavirus 2 RNA [facility] This lab was ordered by [facility] and reported by [facility]. ID Date Data Source [id number] 01/12/2020 02:29:00 PM EDT [facility] Name Value Range Interpretation Code Description Data Joellen rce(s) Supporting Document(s) SARS coronavirus 2 RNA [facility] This lab was ordered by [facility] and reported by [facility]. ID Date Data Source [id number] 01/05/2020 02:00:00 PM EDT [facility] Name Value Range Interpretation Code Description Data Joellen rce(s) Supporting Document(s) SARS coronavirus 2 RNA [facility] This lab was ordered by [facility] and reported by [facility]. ID Date Data Source [id number] 12/31/2019 02:00:00 PM EDT [facility] Name Value Range Interpretation Code Description Data Joellen rce(s) Supporting Document(s) SARS coronavirus 2 RNA [facility] This lab was ordered by [facility] and reported by [facility]. ID Date Data Source [id number] 12/22/2019 02:48:00 PM EDT [facility] Name Value Range Interpretation Code Description Data Joellen rce(s) Supporting Document(s) SARS coronavirus 2 RNA [facility] This lab was ordered by [facility] and reported by [facility]. ID Date Data Source [id number] 12/15/2019 01:16:00 PM EDT [facility] Name Value Range Interpretation Code Description Data Joellen rce(s) Supporting Document(s) SARS coronavirus 2 RNA [facility] This lab was ordered by [facility] and reported by [facility]. ID Date Data Source [id number] 11/10/2019 03:16:00 PM EDT [facility] Name Value Range Interpretation Code Description Data Joellen rce(s) Supporting Document(s) SARS coronavirus 2 RNA [facility] This lab was ordered by [facility] and reported by [facility]. ID Date Data Source [id number] 11/03/2019 03:27:00 PM EDT [facility] Name Value Range Interpretation Code Description Data Joellen rce(s) Supporting Document(s) SARS coronavirus 2 RNA [facility] This lab was ordered by [facility] and reported by [facility]. ID Date Data Source [id number] 10/27/2019 03:16:00 PM EDT [facility] Name Value Range Interpretation Code Description Data Joellen rce(s) Supporting Document(s) SARS coronavirus 2 RNA [facility] This lab was ordered by [facility] and reported by [facility]. ID Date Data Source [id number] 10/20/2019 03:00:00 PM EDT [facility] Name Value Range Interpretation Code Description Data Joellen rce(s) Supporting Document(s) SARS CORONAVIRUS 2 RNA [facility] This lab was ordered by [facility] and reported by [facility]. ID Date Data Source [id number] 10/13/2019 03:14:00 PM EDT [facility] Name Value Range Interpretation Code Description Data Joellen rce(s) Supporting Document(s) SARS CORONAVIRUS 2 RNA [facility] This lab was ordered by [facility] and reported by [facility]. ID Date Data Source [id number] 10/06/2019 03:12:00 PM EDT [facility] Name Value Range Interpretation Code Description Data Joellen rce(s) Supporting Document(s) SARS CORONAVIRUS 2 RNA [facility] This lab was ordered by [facility] and reported by [facility]. ID Date Data Source [id number] 10/03/2019 12:00:00 AM EDT [facility] Name Value Range Interpretation Code Description Data Joellen rce(s) Supporting Document(s) SARS CORONAVIRUS 2 RNA [facility] This lab was ordered by [facility] and reported by [facility]. ID Date Data Source [id number] 09/25/2019 03:04:00 PM EDT [facility] Name Value Range Interpretation Code Description Data Joellen rce(s) Supporting Document(s) SARS CORONAVIRUS 2 RNA [facility] This lab was ordered by [facility] and reported by [facility]. ID Date Data Source [id number] 09/22/2019 02:20:00 PM EDT [facility] Name Value Range Interpretation Code Description Data Joellen rce(s) Supporting Document(s) SARS CORONAVIRUS 2 RNA [facility] This lab was ordered by [facility] and reported by [facility]. ID Date Data Source [id number] 09/16/2019 09:32:00 AM EDT [facility] Name Value Range Interpretation Code Description Data Joellen rce(s) Supporting Document(s) SARS CORONAVIRUS 2 RNA [facility] This lab was ordered by [facility] and reported by [facility]. ID Date Data Source [id number] 09/10/2019 11:14:00 AM EDT [facility] Name Value Range Interpretation Code Description Data Joellen rce(s) Supporting Document(s) SARS CORONAVIRUS 2 RNA [facility] This lab was ordered by [facility] and reported by [facility]. ID Date Data Source [id number] 09/01/2019 07:15:00 AM EDT [facility] Name Value Range Interpretation Code Description Data Joellen rce(s) Supporting Document(s) SARS CORONAVIRUS 2 RNA [facility] This lab was ordered by [facility] and reported by [facility]. Procedure Social History Code Duration Value Status Description Data Source(s ) Smoking 03/10/2020 12:00:00 AM EST Former Smoker completed Former Smoker eCW1 ([facility]) Smoking 03/10/2020 12:00:00 AM EST Former Smoker completed Former Smoker eCW1 ([facility]) Vital Signs ID Date Data Source UNK Name Value Range Interpretation Code Description Data Source(s) Diastolic blood pressure 78 mm[Hg] 78 mm[Hg] eCW1 ([facility]) Systolic blood pressure 124 mm[Hg] 124 mm[Hg] e CW1 ([facility]) Body mass index (BMI) [Ratio] 24.87 kg/m2 24.87 kg/m2 W1 ([facility]) Body height 62 [in_i] 62 [in_i] eCW1 ([facility]) Body weight 61.69 kg 61.69 kg W1 ([facility]) Body weight 136 [lb_av] 136 [lb_av] eCW1 ([facility]) Diastolic blood pressure 64 mm[Hg] 64 mm[Hg] eCW1 ([facility]) Systolic blood pressure 116 mm[Hg] 116 mm[Hg] e CW1 ([facility]) Body mass index (BMI) [Ratio] 22.13 kg/m2 22.13 kg/m2 W1 ([facility]) Body height 62 [in_us] 62 [in_us] eCW1 ([facility]) Body weight Measured 121 [lb_av] 121 [lb_av] eC W1 ([facility]) Patient Treatment Plan of Care Planned Activity Planned Date Details Description Data Source (s) Metronidazole 500 MG Oral Tablet 05/12/2019 12:00:00 AM EST eCW1 ([facility])
== END 2020-05-24 17:08 | disposition left against medical advice (07) ==
LOC: M ED 14:35
DX: Z53.21 Procedure and treatment not carried out due to patient leaving prior to being seen by health care provider (principal)

== ENCOUNTER 2020-05-26 16:45 | Emergency (ER) | payer OTHER ==
[~2020-05-26] VITALS: Ht 152.4 cm; Wt 61.3 kg
[2020-05-26 16:45] VITALS: BP 132/82
--- OUTSIDE RECORDS SUMMARY | 2020-05-26 16:52 | CCD ---
Author Author [facility] Organization [facility] Address Unknown Phone Unavailable Care Team Providers Care Meter Installer Name Role Phone Dobrinski, S Carroll YARN POLISHING MACHINE OPERATOR Unavailable Unavailable Dobrinski, S Carroll YARN POLISHING MACHINE OPERATOR Unavailable Unavailable Dobrinski, S Carroll YARN POLISHING MACHINE OPERATOR Unavailable Unavailable Dobrinski, S Carroll YARN POLISHING MACHINE OPERATOR Unavailable Unavailable Dobrinski, S Carroll YARN POLISHING MACHINE OPERATOR Unavailable Unavailable Dobrinski, S Carroll YARN POLISHING MACHINE OPERATOR Unavailable Unavailable Dobrinski, S Carroll YARN POLISHING MACHINE OPERATOR Unavailable Unavailable Dobrinski, S Carroll YARN POLISHING MACHINE OPERATOR Unavailable Unavailable Dobrinski, S Carroll YARN POLISHING MACHINE OPERATOR Unavailable Unavailable Dobrinski, S Carroll YARN POLISHING MACHINE OPERATOR Unavailable Unavailable Dobrinski, S Carroll YARN POLISHING MACHINE OPERATOR Unavailable Unavailable Re-disclosure Warning The records that you [...] is protected by Article 27-F of the [facility] Public Health law. If you continue you may have access to information: Regarding HIV / AIDS; Provided by facilities licensed or operated by the [facility] Office of Mental Health; or Provided by the [facility] Office for People With Developmental Disabilities. If such information is present, then the following [facility] mandated warning applies: This information has been [...] law may result in a fine or fpc sentence or both. A general authorization for the release of medical or other information is NOT sufficient authorization for further disc losure. Allergies and Adverse Reactions Type Description Substance Reaction Status Data Source(s ) Levaquin Levaquin Levofloxacin 750 MG Oral Tablet [Levaquin ] An[facility]axis [facility] Family History Family Member Name Family Member Gender Family Member Status Date o f Status Description Data Source(s) Unknown Unknown Problem MEDENT ([facility], ) Encounters Encounter Providers Location Date Indications Data Source(s ) O Attender: Carroll LOVE 05/24/2020 01:19:03 PM EST - 05/24/2020 01:58:03 PM EST [facility] ([facility] ) [place] [address] [address] 05/14/2020 12:00:00 AM EST eCW1 ([facility]) [facility] [address] [place] [address] 03/10/2020 12:00:00 AM EST eCW1 ([facility]) [facility] [address] [place] [address], [place] [address] 06/09/2019 12:00:00 AM EST eCW1 ([facility]) [address] [place] [address] 05/28/2019 12:00:00 AM EST eCW1 ([facility]) [facility] [address] [place] [address], [place] [address] 05/16/2019 12:00:00 AM EST eCW1 ([facility]) [facility] [address] [place] [address], [place] [address] 05/16/2019 12:00:00 AM EST eCW1 ([facility]) [facility] [address] [place] [phone] 05/12/2019 12:00:00 AM EST eCW1 ([facility]) Medications Medication Brand Name Start Date Product Form Dose Route Admi nistrative Instructions Pharmacy Instructions Status Indications Reaction Description Data Source(s) Metronidazole 500 MG Oral Tablet Metronidazole 500 MG 2019 12:00:00 AM EST active 1 tablet eCW1 ([facility]) Metronidazole 500 MG Oral Tablet Metronidazole 500 MG 2019 12:00:00 AM EST 1.0 {tablet} suspended Metronid azole 500 MG [facility] Metronidazole 500 MG Oral Tablet Metronidazole 500 MG 2019 12:00:00 AM EST 1.0 {tablet} suspended Metronid azole 500 MG [facility]CW1 ([facility]) Insurance Providers Payer name Policy type / Coverage type Policy ID Covered green party ID Covered green party's relationship to wolf Policy Wolf Plan Information [employer] [id number] Self [id number] [employer] [id number] ANSI-Commercial [id number] ANSI-Commercial [id number] ANSI-Commercial [id number] [place] [id number] SP [id number] Medicaid [facility] Part B [id number] Self [id number] [place] [id number] Self [id number] Medicaid [facility] Part B [id number] Self [id number] [place] [id number] Self [id number] MEDICAID [id number] SP [id number] Medicaid [facility] Part B [id number] Self [id number] [place] [id number] Self [id number] ANSI-Commercial [id number] ANSI-Commercial [id number] ANSI-Commercial [id number] [place] [id number] SP [id number] [place] Medicaid [id number] Self [id number] [place] [id number] SP [id number] [place] [id number] SP [id number] 000 ANSI-Commercial [id number] [place] [id number] SP [id number] 000 ANSI-Commercial [id number] ANSI-Commercial [id number] ANSI-Commercial [id number] ANSI-Commercial [id number] [place]/[facility] Commercial [id number] Self [id number] ANSI-Commercial [id number] ANSI-Commercial [id number] ANSI-Commercial [id number] ANSI-Commercial [id number] ANSI-Commercial [id number] ANSI-Commercial [id number] ANSI-Commercial [id number] ANSI-Commercial [id number] ANSI-Commercial [id number] ANSI-Commercial [id number] [place] [id number] SP [id number] Problems, Conditions, and Diagnoses Code Display Name Description Problem Type Effective Dates Data Source(s) A60.00 [id number] Genital herpes Problem 05/12/2019 12:00:00 A M EST [facility] A60.00 [id number] Genital herpes Problem 05/12/2019 12:00:00 A M EST [facility]CW1 ([facility]) Surgeries/Procedures Procedure Description Date Indications Data Source(s) SMEAR, WET [place], SALINE/INK 05/12/2019 12:00:00 AM ES T [facility]CW1 ([facility]) Results ID Date Data Source [id number] 05/20/2020 12:00:00 AM EST [facility] Name Value Range Interpretation Code Description Data Joellen rce(s) Supporting Document(s) SARS coronavirus 2 Ag NEGATIVE [facility] This lab was ordered by [facility] and reported by [facility]. ID Date Data Source [id number] 05/17/2020 12:00:00 PM EST [facility] Name Value Range Interpretation Code Description Data Joellen rce(s) Supporting Document(s) SARS coronavirus 2 RNA Not Detected [facility] [place] This lab was ordered by [facility] and reported by [facility]. ID Date Data Source [id number] 05/13/2020 12:00:00 AM EST [facility] Name Value Range Interpretation Code Description Data Joellen rce(s) Supporting Document(s) SARS coronavirus 2 Ag Negative [facility] This lab was ordered by [facility] and reported by [facility]. ID Date Data Source [id number] 05/10/2020 03:00:00 PM EST [facility] Name Value Range Interpretation Code Description Data Joellen rce(s) Supporting Document(s) SARS coronavirus 2 RNA Not Detected [facility] [place] This lab was ordered by [facility] and reported by [facility]. ID Date Data Source [id number] 05/03/2020 09:00:00 AM EST [facility] Name Value Range Interpretation Code Description Data Joellen rce(s) Supporting Document(s) SARS coronavirus 2 RNA Not Detected [facility] [place] This lab was ordered by [facility] and reported by [facility]. ID Date Data Source [id number] 04/26/2020 02:00:00 PM EST [facility] Name Value Range Interpretation Code Description Data Joellen rce(s) Supporting Document(s) SARS coronavirus 2 RNA Not Detected [facility] [place] This lab was ordered by [facility] and reported by [facility]. ID Date Data Source [id number] 04/19/2020 02:36:00 PM EST [facility] Name Value Range Interpretation Code Description Data Joellen rce(s) Supporting Document(s) SARS coronavirus 2 RNA [facility] This lab was ordered by [facility] and reported by [facility]. ID Date Data Source [id number] 04/12/2020 02:13:00 PM EST [facility] Name Value Range Interpretation Code Description Data Joellen rce(s) Supporting Document(s) SARS coronavirus 2 RNA [facility] This lab was ordered by [facility] and reported by [facility]. ID Date Data Source [id number] 04/05/2020 12:14:00 PM EST [facility] Name Value Range Interpretation Code Description Data Joellen rce(s) Supporting Document(s) SARS coronavirus 2 RNA [facility] This lab was ordered by [facility] and reported by [facility]. ID Date Data Source [id number] 03/29/2020 01:35:00 PM EST [facility] Name Value Range Interpretation Code Description Data Joellen rce(s) Supporting Document(s) SARS coronavirus 2 RNA [facility] This lab was ordered by [facility] and reported by [facility]. ID Date Data Source [id number] 03/22/2020 02:02:00 PM EST [facility] Name Value Range Interpretation Code Description Data Joellen rce(s) Supporting Document(s) SARS coronavirus 2 RNA [facility] This lab was ordered by [facility] and reported by [facility]. ID Date Data Source [id number] 03/15/2020 02:00:00 PM EST [facility] Name Value Range Interpretation Code Description Data Joellen rce(s) Supporting Document(s) SARS coronavirus 2 RNA [facility] This lab was ordered by [facility] and reported by [facility]. ID Date Data Source [id number], GC & TRICH AMP 03/10/2020 12:00:00 AM EST eCW1 ([facility]) Name Value Range Interpretation Code Description Data Joellen rce(s) Supporting Document(s) NOT DETECTED NEGATIVE eCW1 ([facility]) ID Date Data Source [id number] CULTURE 03/10/2020 12:00:00 AM EST eCW1 ([facility]) Name Value Range Interpretation Code Description Data Joellen rce(s) Supporting Document(s) Laboratory studies (set) URINE CULTU RE [facility] ID Date Data Source [id number] 03/08/2020 11:09:00 AM EST [facility] Name Value Range Interpretation Code Description Data Joellen rce(s) Supporting Document(s) SARS coronavirus 2 RNA [facility] This lab was ordered by [facility] and reported by [facility]. ID Date Data Source [id number] 03/01/2020 02:15:00 PM EST [facility] Name Value Range Interpretation Code Description Data Joellen rce(s) Supporting Document(s) SARS coronavirus 2 RNA [facility] This lab was ordered by [facility] and reported by [facility]. ID Date Data Source [id number] 02/23/2020 02:00:00 PM EST [facility] Name Value Range Interpretation Code Description Data Joellen rce(s) Supporting Document(s) SARS coronavirus 2 RNA [facility] This lab was ordered by [facility] and reported by [facility]. ID Date Data Source [id number] 02/16/2020 02:04:00 PM EDT [facility] Name Value Range Interpretation Code Description Data Joellen rce(s) Supporting Document(s) SARS coronavirus 2 RNA [facility] This lab was ordered by [facility] and reported by [facility]. ID Date Data Source [id number] 02/09/2020 12:00:00 PM EDT [facility] Name Value Range Interpretation Code Description Data Joellen rce(s) Supporting Document(s) SARS coronavirus 2 RNA [facility] This lab was ordered by [facility] and reported by [facility]. ID Date Data Source [id number] 02/02/2020 03:00:00 PM EDT [facility] Name Value Range Interpretation Code Description Data Joellen rce(s) Supporting Document(s) SARS coronavirus 2 RNA [facility] This lab was ordered by [facility] and reported by [facility]. ID Date Data Source [id number] 01/26/2020 02:00:00 PM EDT [facility] Name Value Range Interpretation Code Description Data Joellen rce(s) Supporting Document(s) SARS coronavirus 2 RNA [facility] This lab was ordered by [facility] and reported by [facility]. ID Date Data Source [id number] 01/19/2020 12:00:00 PM EDT [facility] Name Value Range Interpretation Code Description Data Joellen rce(s) Supporting Document(s) SARS coronavirus 2 RNA [facility] This lab was ordered by [facility] and reported by [facility]. ID Date Data Source [id number] 01/12/2020 02:29:00 PM EDT [facility] Name Value Range Interpretation Code Description Data Joellen rce(s) Supporting Document(s) SARS coronavirus 2 RNA [facility] This lab was ordered by [facility] and reported by [facility]. ID Date Data Source [id number] 01/05/2020 02:00:00 PM EDT [facility] Name Value Range Interpretation Code Description Data Joellen rce(s) Supporting Document(s) SARS coronavirus 2 RNA [facility] This lab was ordered by [facility] and reported by [facility]. ID Date Data Source [id number] 12/31/2019 02:00:00 PM EDT [facility] Name Value Range Interpretation Code Description Data Joellen rce(s) Supporting Document(s) SARS coronavirus 2 RNA [facility] This lab was ordered by [facility] and reported by [facility]. ID Date Data Source [id number] 12/22/2019 02:48:00 PM EDT [facility] Name Value Range Interpretation Code Description Data Joellen rce(s) Supporting Document(s) SARS coronavirus 2 RNA [facility] This lab was ordered by [facility] and reported by [facility]. ID Date Data Source [id number] 12/15/2019 01:16:00 PM EDT [facility] Name Value Range Interpretation Code Description Data Joellen rce(s) Supporting Document(s) SARS coronavirus 2 RNA [facility] This lab was ordered by [facility] and reported by [facility]. ID Date Data Source [id number] 11/10/2019 03:16:00 PM EDT [facility] Name Value Range Interpretation Code Description Data Joellen rce(s) Supporting Document(s) SARS coronavirus 2 RNA [facility] This lab was ordered by [facility] and reported by [facility]. ID Date Data Source [id number] 11/03/2019 03:27:00 PM EDT [facility] Name Value Range Interpretation Code Description Data Joellen rce(s) Supporting Document(s) SARS coronavirus 2 RNA [facility] This lab was ordered by [facility] and reported by [facility]. ID Date Data Source [id number] 10/27/2019 03:16:00 PM EDT [facility] Name Value Range Interpretation Code Description Data Joellen rce(s) Supporting Document(s) SARS coronavirus 2 RNA [facility] This lab was ordered by [facility] and reported by [facility]. ID Date Data Source [id number] 10/20/2019 03:00:00 PM EDT [facility] Name Value Range Interpretation Code Description Data Joellen rce(s) Supporting Document(s) SARS CORONAVIRUS 2 RNA [facility] This lab was ordered by [facility] and reported by [facility]. ID Date Data Source [id number] 10/13/2019 03:14:00 PM EDT [facility] Name Value Range Interpretation Code Description Data Joellen rce(s) Supporting Document(s) SARS CORONAVIRUS 2 RNA [facility] This lab was ordered by [facility] and reported by [facility]. ID Date Data Source [id number] 10/06/2019 03:12:00 PM EDT [facility] Name Value Range Interpretation Code Description Data Joellen rce(s) Supporting Document(s) SARS CORONAVIRUS 2 RNA [facility] This lab was ordered by [facility] and reported by [facility]. ID Date Data Source [id number] 10/03/2019 12:00:00 AM EDT [facility] Name Value Range Interpretation Code Description Data Joellen rce(s) Supporting Document(s) SARS CORONAVIRUS 2 RNA [facility] This lab was ordered by [facility] and reported by [facility]. ID Date Data Source [id number] 09/25/2019 03:04:00 PM EDT [facility] Name Value Range Interpretation Code Description Data Joellen rce(s) Supporting Document(s) SARS CORONAVIRUS 2 RNA [facility] This lab was ordered by [facility] and reported by [facility]. ID Date Data Source [id number] 09/22/2019 02:20:00 PM EDT [facility] Name Value Range Interpretation Code Description Data Joellen rce(s) Supporting Document(s) SARS CORONAVIRUS 2 RNA [facility] This lab was ordered by [facility] and reported by [facility]. ID Date Data Source [id number] 09/16/2019 09:32:00 AM EDT [facility] Name Value Range Interpretation Code Description Data Joellen rce(s) Supporting Document(s) SARS CORONAVIRUS 2 RNA [facility] This lab was ordered by [facility] and reported by [facility]. ID Date Data Source [id number] 09/10/2019 11:14:00 AM EDT [facility] Name Value Range Interpretation Code Description Data Joellen rce(s) Supporting Document(s) SARS CORONAVIRUS 2 RNA [facility] This lab was ordered by [facility] and reported by [facility]. ID Date Data Source [id number] 09/01/2019 07:15:00 AM EDT [facility] Name Value Range Interpretation Code Description Data Joellen rce(s) Supporting Document(s) SARS CORONAVIRUS 2 RNA [facility] This lab was ordered by [facility] and reported by [facility]. Procedure Social History Code Duration Value Status Description Data Source(s ) Smoking 03/10/2020 12:00:00 AM EST Former Smoker completed [facility] Smoking 03/10/2020 12:00:00 AM EST Former Smoker completed Former Smoker eCW1 ([facility]) Vital Signs ID Date Data Source UNK Name Value Range Interpretation Code Description Data Source(s) Diastolic blood pressure 78 mm[Hg] 78 mm[Hg] eCW1 [facility]) Systolic blood pressure 124 mm[Hg] 124 mm[Hg] e CW1 ([facility]) Body mass index (BMI) [Ratio] 24.87 kg/m2 24.87 kg/m2 W1 ([facility]) Body height 62 [in_i] 62 [in_i] eCW1 ([facility]) Body weight 61.69 kg 61.69 kg W1 ([facility]) Body weight 136 [lb_av] 136 [lb_av] eCW1 ([facility]) Diastolic blood pressure 64 mm[Hg] 64 mm[Hg] eCW1 [facility] Systolic blood pressure 116 mm[Hg] 116 mm[Hg] e CW1 ([facility]) Body mass index (BMI) [Ratio] 22.13 kg/m2 22.13 kg/m2 W1 ([facility]) Body height 62 [in_us] 62 [in_us] eCW1 ([facility]) Body weight Measured 121 [lb_av] 121 [lb_av] eC W1 [facility] Patient Treatment Plan of Care Planned Activity Planned Date Details Description Data Source (s) Metronidazole 500 MG Oral Tablet 05/12/2019 12:00:00 AM EST [facility]CW1 [facility]
[2020-05-26] MEDS ORDERED: KETOROLAC 30 MG/ML 1ML VIAL IV ONE (17:45)
[2020-05-26] MEDS ORDERED: ONDANSETRON 4MG/2ML VIAL IV ONE (17:45)
[2020-05-26] MEDS ORDERED: NS 1,000 ML IV ONE (17:45)
--- OUTSIDE RECORDS SUMMARY | 2020-05-26 17:50 | CCD ---
Author Author [facility] Organization [facility] Address Unknown Phone Unavailable Care Team Providers Care Ict Developer Name Role Phone Dobrinski, S Carroll HEALTH AND PHYSICAL EDUCATION PROFESSOR Unavailable Unavailable Dobrinski, S Carroll HEALTH AND PHYSICAL EDUCATION PROFESSOR Unavailable Unavailable Dobrinski, S Carroll HEALTH AND PHYSICAL EDUCATION PROFESSOR Unavailable Unavailable Dobrinski, S Carroll HEALTH AND PHYSICAL EDUCATION PROFESSOR Unavailable Unavailable Dobrinski, S Carroll HEALTH AND PHYSICAL EDUCATION PROFESSOR Unavailable Unavailable Dobrinski, S Carroll HEALTH AND PHYSICAL EDUCATION PROFESSOR Unavailable Unavailable Dobrinski, S Carroll HEALTH AND PHYSICAL EDUCATION PROFESSOR Unavailable Unavailable Dobrinski, S Carroll HEALTH AND PHYSICAL EDUCATION PROFESSOR Unavailable Unavailable Dobrinski, S Carroll HEALTH AND PHYSICAL EDUCATION PROFESSOR Unavailable Unavailable Dobrinski, S Carroll HEALTH AND PHYSICAL EDUCATION PROFESSOR Unavailable Unavailable Dobrinski, S Carroll HEALTH AND PHYSICAL EDUCATION PROFESSOR Unavailable Unavailable Re-disclosure Warning The records that [...] is protected by Article 27-F of the [facility] Public Health law. If you continue you may have access to information: Regarding HIV / AIDS; Provided by facilities licensed or operated by the [facility] Office of Mental Health; or Provided by the [facility] Office for People With Developmental Disabilities. If such information is present, then the following [facility] mandated warning applies: This information [...] law may result in a fine or mcfp sentence or both. A general authorization for the release of medical or other information is NOT sufficient authorization for further disc losure. Allergies and Adverse Reactions Type Description Substance Reaction Status Data Source(s ) Levaquin Levaquin Levofloxacin 750 MG Oral Tablet [Levaquin ] Anaphylaxis Active eCW1 ([facility]) Family History Family Member Name Family Member Gender Family Member Status Date o f Status Description Data Source(s) Unknown Unknown Problem MEDENT ([facility], ) Encounters Encounter Providers Location Date Indications Data Source(s ) O Attender: Carroll LOVE 05/24/2020 01:19:03 PM EST - 05/24/2020 01:58:03 PM EST DocuTap ([facility] ) [place] [address] [address] 05/14/2020 12:00:00 AM EST eCW1 ([facility]) [facility] [address] [address] 03/10/2020 12:00:00 AM EST eCW1 ([facility]) [facility] [address] [place] [address], [place] [address] 06/09/2019 12:00:00 AM EST eCW1 ([facility]) [address] [place] [address] 05/28/2019 12:00:00 AM EST eCW1 ([facility]) [facility] [address] [place] [address], [place] [address] 05/16/2019 12:00:00 AM EST eCW1 ([facility]) [facility] [address] [place] [address], [place] [address] 05/16/2019 12:00:00 AM EST eCW1 ([facility]) [facility] [address] [place] [address] 05/12/2019 12:00:00 AM EST eCW1 ([facility]) Medications Medication Brand Name Start Date Product Form Dose Route Admi nistrative Instructions Pharmacy Instructions Status Indications Reaction Description Data Source(s) Metronidazole 500 MG Oral Tablet Metronidazole 500 MG 2019 12:00:00 AM EST active 1 tablet eCW1 ([facility]) Metronidazole 500 MG Oral Tablet Metronidazole 500 MG 2019 12:00:00 AM EST 1.0 {tablet} suspended Metronid azole 500 MG eCW1 ([facility]) Metronidazole 500 MG Oral Tablet Metronidazole 500 MG 2019 12:00:00 AM EST 1.0 {tablet} suspended Metronid azole 500 MG eCW1 ([facility]) Insurance Providers Payer name Policy type / Coverage type Policy ID Covered alliance party ID Covered alliance party's relationship to wolf Policy Wolf Plan Information [employer] [id number] Self [id number] Exhibition A [id number] ANSI-Commercial [id number] ANSI-Commercial [id number] ANSI-Commercial [id number] [place] [id number] SP [id number] 000 Medicaid [facility] Part B [id number] Self [id number] [place] [id number] Self [id number] Medicaid [facility] Part B [id number] Self [id number] [place] Medicaid [id number] Self [id number] MEDICAID [id number] SP [id number] Medicaid [facility] Part B [id number] Self [id number] [place] [id number] Self [id number] ANSI-Commercial [id number] ANSI-Commercial [id number] ANSI-Commercial [id number] [place] [id number] SP [id number] [place] [id number] Self [id number] [place] [id number] SP [id number] [place] [id number] SP [id number] 000 ANSI-Commercial [id number] [place] [id number] SP [id number] 000 ANSI-Commercial [id number] ANSI-Commercial [id number] ANSI-Commercial [id number] ANSI-Commercial [id number] [place] Medicaid/[facility] Commercial [id number] Self [id number] ANSI-Commercial [id number] ANSI-Commercial [id number] ANSI-Commercial [id number] ANSI-Commercial [id number] ANSI-Commercial [id number] ANSI-Commercial [id number] ANSI-Commercial [id number] ANSI-Commercial [id number] ANSI-Commercial [id number] ANSI-Commercial [id number] [place] [id number] SP [id number] Problems, Conditions, and Diagnoses Code Display Name Description Problem Type Effective Dates Data Source(s) A60.00 54468118 Genital herpes Problem 05/12/2019 12:00:00 A M EST eCW1 ([facility]) A60.00 [id number] Genital herpes Problem 05/12/2019 12:00:00 A M EST eCW1 ([facility]) Surgeries/Procedures Procedure Description Date Indications Data Source(s) SMEAR, WET M[place], SALINE/INK 05/12/2019 12:00:00 AM ES T eCW1 ([facility]) Results ID Date Data Source [id number] 05/20/2020 12:00:00 AM EST [facility] Name Value Range Interpretation Code Description Data Joellen rce(s) Supporting Document(s) SARS coronavirus 2 Ag NEGATIVE [facility] This lab was ordered by [facility] and reported by [facility]. ID Date Data Source [id number] 05/17/2020 12:00:00 PM EST [facility] Name Value Range Interpretation Code Description Data Joellen rce(s) Supporting Document(s) SARS coronavirus 2 RNA Not Detected [facility] This lab was ordered by [facility] and reported by [facility]. ID Date Data Source [id number] 05/13/2020 12:00:00 AM EST [facility] Name Value Range Interpretation Code Description Data Joellen rce(s) Supporting Document(s) SARS coronavirus 2 Ag Negative [facility] This lab was ordered by [facility] and reported by [facility]. ID Date Data Source [id number] 05/10/2020 03:00:00 PM EST [facility] Name Value Range Interpretation Code Description Data Joellen rce(s) Supporting Document(s) SARS coronavirus 2 RNA Not Detected [facility] [place] This lab was ordered by [facility] and reported by [facility]. ID Date Data Source [id number] 05/03/2020 09:00:00 AM EST [facility] Name Value Range Interpretation Code Description Data Joellen rce(s) Supporting Document(s) SARS coronavirus 2 RNA Not Detected [facility] [place] This lab was ordered by [facility] and reported by [facility]. ID Date Data Source [id number] 04/26/2020 02:00:00 PM EST [facility] Name Value Range Interpretation Code Description Data Joellen rce(s) Supporting Document(s) SARS coronavirus 2 RNA Not Detected [facility] [place] This lab was ordered by [facility] and reported by [facility]. ID Date Data Source [id number] 04/19/2020 02:36:00 PM EST [facility] Name Value Range Interpretation Code Description Data Joellen rce(s) Supporting Document(s) SARS coronavirus 2 RNA [facility] This lab was ordered by [facility] and reported by [facility]. ID Date Data Source [id number] 04/12/2020 02:13:00 PM EST [facility] Name Value Range Interpretation Code Description Data Joellen rce(s) Supporting Document(s) SARS coronavirus 2 RNA [facility] This lab was ordered by [facility] and reported by [facility]. ID Date Data Source [id number] 04/05/2020 12:14:00 PM EST [facility] Name Value Range Interpretation Code Description Data Joellen rce(s) Supporting Document(s) SARS coronavirus 2 RNA [facility] This lab was ordered by [facility] and reported by [facility]. ID Date Data Source [id number] 03/29/2020 01:35:00 PM EST [facility] Name Value Range Interpretation Code Description Data Joellen rce(s) Supporting Document(s) SARS coronavirus 2 RNA [facility] This lab was ordered by [facility] and reported by [facility]. ID Date Data Source [id number] 03/22/2020 02:02:00 PM EST [facility] Name Value Range Interpretation Code Description Data Joellen rce(s) Supporting Document(s) SARS coronavirus 2 RNA [facility] This lab was ordered by [facility] and reported by [facility]. ID Date Data Source [id number] 03/15/2020 02:00:00 PM EST [facility] Name Value Range Interpretation Code Description Data Joellen rce(s) Supporting Document(s) SARS coronavirus 2 RNA [facility] This lab was ordered by [facility] and reported by [facility]. ID Date Data Source [id number], GC & TRICH AMP 03/10/2020 12:00:00 AM EST eCW1 ([facility]) Name Value Range Interpretation Code Description Data Joellen rce(s) Supporting Document(s) NOT DETECTED NEGATIVE [facility]CW1 [facility] ID Date Data Source URINE CULTURE 03/10/2020 12:00:00 AM EST eCW1 ([facility]) Name Value Range Interpretation Code Description Data Joellen rce(s) Supporting Document(s) Laboratory studies (set) URINE CULTU RE eCW1 ([facility]) ID Date Data Source [id number] 03/08/2020 11:09:00 AM EST [facility] Name Value Range Interpretation Code Description Data Joellen rce(s) Supporting Document(s) SARS coronavirus 2 RNA [facility] This lab was ordered by [facility] and reported by [facility]. ID Date Data Source [id number] 03/01/2020 02:15:00 PM EST [facility] Name Value Range Interpretation Code Description Data Joellen rce(s) Supporting Document(s) SARS coronavirus 2 RNA [facility] This lab was ordered by [facility] and reported by [facility]. ID Date Data Source [id number] 02/23/2020 02:00:00 PM EST [facility] Name Value Range Interpretation Code Description Data Joellen rce(s) Supporting Document(s) SARS coronavirus 2 RNA [facility] This lab was ordered by [facility] and reported by [facility]. ID Date Data Source [id number] 02/16/2020 02:04:00 PM EDT [facility] Name Value Range Interpretation Code Description Data Joellen rce(s) Supporting Document(s) SARS coronavirus 2 RNA [facility] This lab was ordered by [facility] and reported by [facility]. ID Date Data Source [id number] 02/09/2020 12:00:00 PM EDT [facility] Name Value Range Interpretation Code Description Data Joellen rce(s) Supporting Document(s) SARS coronavirus 2 RNA [facility] This lab was ordered by [facility] and reported by [facility]. ID Date Data Source [id number] 02/02/2020 03:00:00 PM EDT [facility] Name Value Range Interpretation Code Description Data Joellen rce(s) Supporting Document(s) SARS coronavirus 2 RNA [facility] This lab was ordered by [facility] and reported by [facility]. ID Date Data Source [id number] 01/26/2020 02:00:00 PM EDT [facility] Name Value Range Interpretation Code Description Data Joellen rce(s) Supporting Document(s) SARS coronavirus 2 RNA [facility] This lab was ordered by [facility] and reported by [facility]. ID Date Data Source [id number] 01/19/2020 12:00:00 PM EDT [facility] Name Value Range Interpretation Code Description Data Joellen rce(s) Supporting Document(s) SARS coronavirus 2 RNA [facility] This lab was ordered by [facility] and reported by [facility]. ID Date Data Source [id number] 01/12/2020 02:29:00 PM EDT [facility] Name Value Range Interpretation Code Description Data Joellen rce(s) Supporting Document(s) SARS coronavirus 2 RNA [facility] This lab was ordered by [facility] and reported by [facility]. ID Date Data Source [id number] 01/05/2020 02:00:00 PM EDT [facility] Name Value Range Interpretation Code Description Data Joellen rce(s) Supporting Document(s) SARS coronavirus 2 RNA [facility] This lab was ordered by [facility] and reported by [facility]. ID Date Data Source [id number] 12/31/2019 02:00:00 PM EDT [facility] Name Value Range Interpretation Code Description Data Joellen rce(s) Supporting Document(s) SARS coronavirus 2 RNA [facility] This lab was ordered by [facility] and reported by [facility]. ID Date Data Source [id number] 12/22/2019 02:48:00 PM EDT [facility] Name Value Range Interpretation Code Description Data Joellen rce(s) Supporting Document(s) SARS coronavirus 2 RNA [facility] This lab was ordered by [facility] and reported by [facility]. ID Date Data Source [id number] 12/15/2019 01:16:00 PM EDT [facility] Name Value Range Interpretation Code Description Data Joellen rce(s) Supporting Document(s) SARS coronavirus 2 RNA [facility] This lab was ordered by [facility] and reported by [facility]. ID Date Data Source [id number] 11/10/2019 03:16:00 PM EDT [facility] Name Value Range Interpretation Code Description Data Joellen rce(s) Supporting Document(s) SARS coronavirus 2 RNA [facility] This lab was ordered by [facility] and reported by [facility]. ID Date Data Source [id number] 11/03/2019 03:27:00 PM EDT [facility] Name Value Range Interpretation Code Description Data Joellen rce(s) Supporting Document(s) SARS coronavirus 2 RNA [facility] This lab was ordered by [facility] and reported by [facility]. ID Date Data Source [id number] 10/27/2019 03:16:00 PM EDT [facility] Name Value Range Interpretation Code Description Data Joellen rce(s) Supporting Document(s) SARS coronavirus 2 RNA [facility] This lab was ordered by [facility] and reported by [facility]. ID Date Data Source [id number] 10/20/2019 03:00:00 PM EDT [facility] Name Value Range Interpretation Code Description Data Joellen rce(s) Supporting Document(s) SARS CORONAVIRUS 2 RNA [facility] This lab was ordered by [facility] and reported by [facility]. ID Date Data Source [id number] 10/13/2019 03:14:00 PM EDT [facility] Name Value Range Interpretation Code Description Data Joellen rce(s) Supporting Document(s) SARS CORONAVIRUS 2 RNA [facility] This lab was ordered by [facility] and reported by [facility]. ID Date Data Source [id number] 10/06/2019 03:12:00 PM EDT [facility] Name Value Range Interpretation Code Description Data Joellen rce(s) Supporting Document(s) SARS CORONAVIRUS 2 RNA [facility] This lab was ordered by [facility] and reported by [facility]. ID Date Data Source [id number] 10/03/2019 12:00:00 AM EDT [facility] Name Value Range Interpretation Code Description Data Joellen rce(s) Supporting Document(s) SARS CORONAVIRUS 2 RNA [facility] This lab was ordered by [facility] and reported by [facility]. ID Date Data Source [id number] 09/25/2019 03:04:00 PM EDT [facility] Name Value Range Interpretation Code Description Data Joellen rce(s) Supporting Document(s) SARS CORONAVIRUS 2 RNA [facility] This lab was ordered by [facility] and reported by [facility]. ID Date Data Source [id number] 09/22/2019 02:20:00 PM EDT [facility] Name Value Range Interpretation Code Description Data Joellen rce(s) Supporting Document(s) SARS CORONAVIRUS 2 RNA [facility] This lab was ordered by [facility] and reported by [facility]. ID Date Data Source [id number] 09/16/2019 09:32:00 AM EDT [facility] Name Value Range Interpretation Code Description Data Joellen rce(s) Supporting Document(s) SARS CORONAVIRUS 2 RNA [facility] This lab was ordered by [facility] and reported by [facility]. ID Date Data Source [id number] 09/10/2019 11:14:00 AM EDT [facility] Name Value Range Interpretation Code Description Data Joellen rce(s) Supporting Document(s) SARS CORONAVIRUS 2 RNA [facility] This lab was ordered by [facility] and reported by [facility]. ID Date Data Source [id number] 09/01/2019 07:15:00 AM EDT [facility] Name Value Range Interpretation Code Description Data Joellen rce(s) Supporting Document(s) SARS CORONAVIRUS 2 RNA [facility] This lab was ordered by [facility] and reported by [facility]. Procedure Social History Code Duration Value Status Description Data Source(s ) Smoking 03/10/2020 12:00:00 AM EST Former Smoker completed Former Smoker eCW1 ([facility]) Smoking 03/10/2020 12:00:00 AM EST Former Smoker completed Former Smoker eCW1 ([facility]) Vital Signs ID Date Data Source UNK Name Value Range Interpretation Code Description Data Source(s) Diastolic blood pressure 78 mm[Hg] 78 mm[Hg] eCW1 ([facility]) Systolic blood pressure 124 mm[Hg] 124 mm[Hg] e CW1 ([facility]) Body mass index (BMI) [Ratio] 24.87 kg/m2 24.87 kg/m2 W1 ([facility]) Body height 62 [in_i] 62 [in_i] eCW1 ([facility]) Body weight 61.69 kg 61.69 kg W1 ([facility]) Body weight 136 [lb_av] 136 [lb_av] eCW1 ([facility]) Diastolic blood pressure 64 mm[Hg] 64 mm[Hg] eCW1 ([facility]) Systolic blood pressure 116 mm[Hg] 116 mm[Hg] e CW1 ([facility]) Body mass index (BMI) [Ratio] 22.13 kg/m2 22.13 kg/m2 W1 ([facility]) Body height 62 [in_us] 62 [in_us] eCW1 ([facility]) Body weight Measured 121 [lb_av] 121 [lb_av] eC W1 ([facility]) Patient Treatment Plan of Care Planned Activity Planned Date Details Description Data Source (s) Metronidazole 500 MG Oral Tablet 05/12/2019 12:00:00 AM EST eCW1 ([facility])
[2020-05-26 18:20] LABS: BASO % 0.5 % (0.0-1.0); EOS # 0.1 10^3/uL (0.0-0.5); EOS % 1.9 % (0.0-3.0); HEMOGLOBIN 13.6 g/dl (12.0-15.5); LYMPH # 1.5 10^3/uL (1.5-5.0); LYMPH % 23.4 % (24.0-44.0); MEAN CORPUSCULAR HGB CONC 32.4 g/dl (32.0-36.5); MEAN CORPUSCULAR VOLUME 92.5 fl (80.0-96.0); MONO # 0.4 10^3/uL (0.0-0.8); MONO % 6.4 % (0.0-5.0); NEUTROPHILS # 4.2 10^3/uL (1.5-8.5); NEUTROPHILS % 67.5 % (36.0-66.0); PLATELET COUNT, AUTOMATED 198 10^3/uL (150-450); RED BLOOD COUNT 4.54 10^6/uL (4.00-5.40); WHITE BLOOD COUNT 6.2 10^3/uL (4.0-10.0)
[2020-05-26 18:48] LABS: ALBUMIN 3.5 GM/DL (3.2-5.2); BILIRUBIN,DIRECT 0.1 MG/DL (0.0-0.2); BILIRUBIN,TOTAL 0.4 MG/DL (0.2-1.0); TOTAL PROTEIN 7.1 GM/DL (6.4-8.2)
--- NOTE | 2020-05-26 19:25 | REPVR ---
PROCEDURE INFORMATION: Exam: CT Abdomen And Pelvis Without Contrast Exam date and time: 05/26/2020 6:58 PM Age: 39 years old Clinical indication: Abdominal pain; Flank; Right; Additional info: Right flank pain, colic TECHNIQUE: Imaging protocol: Computed tomography of the abdomen and pelvis without contrast. Axial, coronal and sagittal reformatted images were created and reviewed. Radiation optimization: All CT scans at this facility use at least one of these dose optimization techniques: automated exposure control; mA and/or kV adjustment per patient size (includes targeted exams where dose is matched to clinical indication); or iterative reconstruction. COMPARISON: CT ABD/PEL W/IV CONTRAST ONLY 04/05/2018 7:46 PM FINDINGS: Liver: Unremarkable. Gallbladder and bile ducts: Status post cholecystectomy. No biliary ductal dilatation. Pancreas: Unremarkable. Spleen: Unremarkable. Adrenal glands: Normal. No mass. Kidneys and ureters: No mass. No radiodense calculi. No hydronephrosis. Stomach and bowel: No bowel wall thickening. No obstruction. No pneumatosis. Appendix: Normal. Intraperitoneal space: Trace nonspecific free pelvic fluid, likely physiologic. No organized fluid collection. No free air. Vasculature: Unremarkable. No aneurysm. Lymph nodes: No pathologically enlarged lymph nodes. Urinary bladder: Unremarkable as visualized. Reproductive: 4.1 x 3.8 cm left adnexal cystic lesion. Bones/joints: No acute osseous abnormality. Soft tissues: Unremarkable. IMPRESSION: 1. 4.1 x 3.8 cm left adnexal cystic lesion. If clinically indicated, pelvic ultrasound may be obtained for further evaluation. 2. Additional findings, as above. Electronically signed by: Carroll Peralta On 05/26/2020 19:25:39 PM
[2020-05-26] MEDS ORDERED: MORPHINE 4 MG/ML 1ML VIAL/SYRINGE (J2270) IV ONE (19:45)
[2020-05-26] MEDS ORDERED: COLA100C5 PO (19:47)
[2020-05-26] MEDS ORDERED: DICY20TA11 PO (19:47)
== END 2020-05-26 20:19 | disposition home or self-care (01) ==
LOC: M ED 16:45
DX: K59.00 Constipation, unspecified (principal); N83.202 Unspecified ovarian cyst, left side; Z79.899 Other long term (current) drug therapy; Z88.1 Allergy status to other antibiotic agents
CPT/HCPCS: 74176; 80047; 80076; 81001; 85025; 96361; 96374; 96375; 99283; J1885; J2270; J2405